=== PATIENT | male | born 1945 | race Caucasian/White ===

== ENCOUNTER → 2023-12-05 10:28 | Outpatient (REF) | payer MEDICARE, BC, SELFPAY ==
[2023-12-05 11:57] LABS: PSA, Total - Diagnostic 2.11 ng/ml (0.0-4.0)
== END ==
LOC: REG 10:28
PROVIDERS: ATTENDING PHYSICIAN Specialist; FAMILY PHYSICIAN Family Medicine
DX: C61 Malignant neoplasm of prostate (principal)
CPT/HCPCS: 36415; 84153

== ENCOUNTER → 2023-12-29 17:09 | Outpatient (REF) | payer MEDICARE, BC, SELFPAY ==
[2023-12-29 18:20] LABS: Urine Albumin Trace (Neg - Trace); Urine Bilirubin Negative (Negative); Urine Character Clear (Clear); Urine Color Yellow; Urine Glucose Negative (Negative); Urine Ketone Negative (Negative); Urine Leukocyte Negative (Negative); Urine Nitrite Negative (Negative); Urine Occult Blood 3+ (Negative); Urine Urobilinogen Negative (Neg - 1+)
[2023-12-29 18:30] LABS: Urine Mucus Few; Urine Uric Acid Crystals Present
[2023-12-29 18:31] LABS: Urine Bacteria Few (Negative); Urine White Cell 0-2 /HPF (0-5)
== END ==
LOC: CLAB 17:09
PROVIDERS: ATTENDING PHYSICIAN Specialist
DX: R31.9 Hematuria, unspecified (principal)
CPT/HCPCS: 81003; 81015

== ENCOUNTER → 2024-01-19 08:17 | Outpatient (REF) | payer MEDICARE, BC, SELFPAY | LOC: RAD 08:17 | PROVIDERS: ATTENDING PHYSICIAN Specialist; FAMILY PHYSICIAN Family Medicine | DX: R31.0 Gross hematuria (principal) | CPT/HCPCS: 76770 ==

== ENCOUNTER → 2024-01-25 11:00 | Outpatient (REF) | payer MEDICARE, BC, SELFPAY | LOC: RAD 11:00 | PROVIDERS: ATTENDING PHYSICIAN Specialist; FAMILY PHYSICIAN Family Medicine | DX: N20.0 Calculus of kidney (principal) | CPT/HCPCS: 74018 ==

== ENCOUNTER → 2024-03-25 09:27 | Outpatient (REF) | payer MEDICARE, BC, SELFPAY ==
[2024-03-25 10:37] LABS: % Basophils 0.4 % (0-2); % Eosinophils 3.3 % (0-6); % Immature Granulocytes 0.6 % (0-0.5); % Lymphocytes 20.3 % (20.5-51.1); % Monocytes 4.7 % (1.7-9.3); % Neutrophils 70.7 % (42.2-75.2); Absolute Eosinophils 0.3 10^3/uL (0-0.7); Absolute Immature Granulocytes 0.1 10^3/uL (0-0.05); Absolute Lymphocytes 1.6 10^3/uL (1.2-3.4); Absolute Monocytes 0.4 10^3/uL (0.1-0.6); Absolute Neutrophils 5.7 10^3/uL (1.4-6.5); Hematocrit 47.3 % (39.0-52.0); Hemoglobin 15.3 g/dL (13.0-18.0); Mean Corp Hgb Conc. 32.3 g/dL (33.0-37.0); Mean Corpuscular Hgb 32.6 pg (27.0-31.0); Mean Corpuscular Volume 100.9 fL (80.0-94.0); Mean Platelet Volume 10.2 fL (7.4-10.4); Nucleated Red Blood Cells % 0 % (-); Platelet Count 165 10^3/uL (130-400); Red Blood Cell Count 4.69 10^6/uL (4.70-6.10); Red Cell Dist. Width 13.8 % (11.5-14.5); White Blood Cell Count 8.1 10^3/uL (4.8-10.8)
[2024-03-25 11:14] LABS: Glycohemoglobin (HgbA1c) 5.3 % (4.0-5.6)
[2024-03-25 11:28] LABS: ALT (SGPT) 21 U/L (0-50); AST (SGOT) 26 U/L (17-59); Albumin 4.7 g/dl (3.5-5.0); Alkaline Phosphatase 85 U/L (38-126); Blood Urea Nitrogen 14 mg/dl (9-20); Calcium 9.1 mg/dl (8.4-10.2); Carbon Dioxide 31 mmol/L (22-30); Chloride 100 mmol/L (98-107); Glucose 104 mg/dl (70-99); HDL Cholesterol 80 mg/dl; LDL Cholesterol, Calculated 185 mg/dl; Potassium 4.4 mmol/L (3.5-5.1); Sodium 140 mmol/L (135-145); Total Bilirubin 0.8 mg/dl (0.2-1.3); Total Cholesterol 296 mg/dl (50-199); Total Protein 7.5 g/dl (6.3-8.2); Triglyceride 156 mg/dl (10-149); Very Low Density Lipoprotein 31 mg/dl (0-30); eGFR > 60.00
[2024-03-25 11:44] LABS: Vitamin D, 25-OH*** 92.2 ng/mL (30-80)
[2024-03-25 11:58] LABS: TSH 1.18 uIU/ml (0.47-4.68)
[2024-03-25 14:28] LABS: Lyme Antibody Screen, EIA Negative (Negative)
[2024-03-27 01:14] LABS: ANA, IgG Reflex to HEp-2 None Detected (None Detected)
[2024-03-28 09:23] LABS: HLA-B27 Negative (Negative)
[2024-03-28 13:01] LABS: Albumin 4.58 g/dL (3.75-5.01); Alpha 1 Globulin 0.31 g/dL (0.19-0.46); Alpha 2 Globulin 0.77 g/dL (0.48-1.05); SPEP IFE Reflex Not Done; Total Protein-Electrophoresis 7.3 g/dL (6.3-8.2)
== END ==
LOC: RAD 09:27
PROVIDERS: ATTENDING PHYSICIAN Internal Medicine Rheumatology; FAMILY PHYSICIAN Family Medicine
DX: G89.29 Other chronic pain (principal); M54.50 Low back pain, unspecified; R53.83 Other fatigue; M35.3 Polymyalgia rheumatica; E78.5 Hyperlipidemia, unspecified; R73.9 Hyperglycemia, unspecified; E55.0 Rickets, active
CPT/HCPCS: 36415; 72110; 80053; 80061; 82306; 83036; 84155; 84165; 84443; 85025; 86038; 86140; 86618; 86812

== ENCOUNTER → 2024-04-29 13:20 | Outpatient (REF) | payer MEDICARE, BC, SELFPAY | LOC: RCS 13:20 | PROVIDERS: ATTENDING PHYSICIAN Family Medicine; FAMILY PHYSICIAN Internal Medicine Rheumatology | DX: I35.0 Nonrheumatic aortic (valve) stenosis (principal) | CPT/HCPCS: 93306 ==

== ENCOUNTER → 2024-05-24 07:14 | Outpatient (REF) | payer MEDICARE, BC, SELFPAY | LOC: MRI 3T 07:14 | PROVIDERS: ATTENDING PHYSICIAN Internal Medicine Rheumatology; FAMILY PHYSICIAN Family Medicine | DX: G89.29 Other chronic pain (principal); M54.31 Sciatica, right side; M54.50 Low back pain, unspecified; R53.83 Other fatigue | CPT/HCPCS: 72148 ==

== ENCOUNTER → 2024-05-28 11:09 | Outpatient (REF) | payer MEDICARE, BC, SELFPAY ==
[2024-05-28 13:01] LABS: PSA, Total - Diagnostic 3.09 ng/ml (0.0-4.0)
== END ==
LOC: REG 11:09
PROVIDERS: ATTENDING PHYSICIAN Specialist; FAMILY PHYSICIAN Family Medicine
DX: C61 Malignant neoplasm of prostate (principal)
CPT/HCPCS: 36415; 84153

== ENCOUNTER → 2024-05-29 11:12 | Outpatient (REF) | payer MEDICARE, BC, SELFPAY | LOC: HWRAD 11:12 | PROVIDERS: ATTENDING PHYSICIAN Specialist; FAMILY PHYSICIAN Family Medicine | DX: R31.0 Gross hematuria (principal) | CPT/HCPCS: 74176 ==

== ENCOUNTER 2024-06-07 06:25 | Day surgery (SDC) | payer MEDICARE, BC, SELFPAY ==
[2024-06-07] VITALS (8 sets, daily range): BP systolic 133–153; BP diastolic 70–96
[2024-06-07] MEDS: NORMOSOL-R/PLASMALYTE-A 1000 IV (07:49)
[2024-06-07] MEDS: Pyridium 200 MG PO (11:27)
[2024-06-07] MEDS: ZOFRAN 4 MG IV (11:29)
--- NOTE | 2024-06-07 11:31 | SUR.PHASEI ---
Pt being prepared to go to [facility] and started c/o nausea. Pt kept in pacu to tx nausea. See MAR
[2024-06-07] MEDS: COMPAZINE 5 MG IV (11:39)
== END 2024-06-07 12:50 | disposition home or self-care (01) ==
LOC: SDS 06:25
PROVIDERS: ATTENDING PHYSICIAN Specialist
DX: N20.0 Calculus of kidney (principal)
CPT/HCPCS: 52356; 74420; 76000; 82365; 93005; C1758; C1894; C2617

== ENCOUNTER 2024-06-21 13:53 | Inpatient (IN) | payer MEDICARE, BC, SELFPAY ==
[2024-06-21] VITALS (12 sets, daily range): BP systolic 103–134; BP diastolic 60–75; BMI 24.7
[2024-06-21] MEDS: NORMOSOL-R/PLASMALYTE-A 1000 IV (09:20)
[2024-06-21] MEDS: EMEND 40 MG PO (10:59)
[2024-06-21] MEDS: DEXTROSE 50% SYRINGE 12.5 GRAMS IV (11:00)
--- NOTE | 2024-06-21 12:19 | W.PN.ADMIT ---
Progress Note - Admit
Progress Note - Admit
pt s/p right ureteroscopy/stone extraction and stent
admitting for severe post op nausea
check labs/cx
gi consult
[2024-06-21 13:02] LABS: Hematocrit 35.9 % (39.0-52.0); Hemoglobin 11.8 g/dL (13.0-18.0); Mean Corp Hgb Conc. 32.9 g/dL (33.0-37.0); Mean Corpuscular Hgb 33.4 pg (27.0-31.0); Mean Corpuscular Volume 101.7 fL (80.0-94.0); Mean Platelet Volume 9.8 fL (7.4-10.4); Platelet Count 158 10^3/uL (130-400); Red Blood Cell Count 3.53 10^6/uL (4.70-6.10); Red Cell Dist. Width 13.2 % (11.5-14.5); White Blood Cell Count 5.8 10^3/uL (4.8-10.8)
[2024-06-21 13:15] LABS: ALT (SGPT) 26 U/L (0-50); AST (SGOT) 28 U/L (17-59); Albumin 3.6 g/dl (3.5-5.0); Alkaline Phosphatase 68 U/L (38-126); Amylase 45 U/L (30-110); Blood Urea Nitrogen 21 mg/dl (9-20); Carbon Dioxide 28 mmol/L (22-30); Chloride 103 mmol/L (98-107); Estimated Creatinine Clearance 69 ml/min; Glucose 91 mg/dl (70-99); Lipase 38 U/L (23-300); Potassium 4.1 mmol/L (3.5-5.1); Sodium 138 mmol/L (135-145); Total Bilirubin 0.7 mg/dl (0.2-1.3); Total Protein 5.9 g/dl (6.3-8.2); eGFR > 60.00
--- NOTE | 2024-06-21 14:10 | PTCARENOTE ---
Pt received from the PACU via bed. Transport was w/o incident. Pt is AAOx3, HRR, lungs are clear. Pt with wolf catheter intact draining punch colored urine. Pt denies pain or nausea at this time. VSS, Pt is afebrile. Pt instructed on plan of care.
Pt verbalized understanding of instructions. Call grady is within reach.
[2024-06-21] MEDS: NSS 1000 IV ×2 (14:12→23:32)
[2024-06-21] MEDS: ANCEF 5 IV ×2 (14:20→21:56)
[2024-06-21] MEDS: TORADOL 15 MG IV ×2 (14:25→21:56)
--- NOTE | 2024-06-21 15:26 | CON.GI ---
Consultation
-
Date/Time Consultation Requested: 06/21/24 at 2pm
Date/Time Consultation Performed: 06/21/24 at 3pm
Requesting Provider: jessie breaux
Performing Provider: srinath Pandey
Reason for Consultation: postop nausea
Medical History
Chief Complaint / HPI
Chief Complaint: gerd, nausea
History of Present Illness:
This patient is a 78-year-old man who has a history of kidney stones and has been having procedures most recently with a right ureteroscopy with stone extraction and stent. He has had at least several surgeries in which he felt fine before the
surgery and then developed belching and nausea afterwards. He did once have abdominal distention and constipation. He states this takes a while to resolve but eventually resolves. He last had a procedure 1 week ago and had nausea and decreased
appetite and did not fully improve when he had his surgery today. He is being admitted for presumed postop issues. Right now he does not have any nausea. He states that giving him antiemetics had not worked. He does have a GI doctor and states
that he has GERD and he has had scopes in the past. He does not remember the name of the doctor but states that he is in [place]. He also had some belching after one of the procedures. Dr. Breaux spoke to me directly regarding this patient
Past Medical History
Past Medical History: Other (Prostate cancer, hypertension, recurrent nephrolithiasis, sleep apnea, GERD, chronic fatigue)
Past Surgical History: Other (Cholecystectomy, radical prostatectomy, ureteroscopy, cystoscopy)
Social History
Tobacco: Non-Smoker
Family History
Family History: Reviewed & Not Pertinent (no colon cancer)
Allergies / Home Medications
Allergy/AdvReac Type Severity Reaction Status Date / Time
No Known Allergies Allergy Verified 06/21/24 09:16
�Medication �Instructions �Recorded
amlodipine 5 mg tablet 5 mg PO DAILY 06/03/22
levothyroxine 50 mcg tablet 50 mcg PO DAILY 06/03/22
losartan 100 mg tablet 100 mg PO DAILY 06/03/22
modafinil 200 mg tablet 600 mg PO DAILY 06/03/22
pantoprazole 40 mg tablet,delayed 40 mg PO DAILY 06/03/22
release (Protonix)
vitamin B complex 1 cap PO DAILY 06/03/22
ibuprofen 200 mg tablet 600 mg PO PRN PRN pain 11/03/22
prednisone 5 mg tablet 5 mg PO DAILY 05/31/24
ascorbic acid (vitamin C) 1,000 mg 1,000 mg PO DAILY 06/04/24
tablet (Vitamin C)
magnesium L-threonate 3 tab PO DAILY 06/04/24
quercetin 500 mg capsule 500 mg PO DAILY 06/04/24
vitamin D3 125 mcg (5,000 1 cap PO DAILY 06/04/24
unit)-vitamin K2 180 mcg capsule
acetaminophen 325 mg tablet 650 mg PO Q6H PRN Pain 06/07/24
(Tylenol)
bupropion HCl 150 mg 24 hr tablet, 150 mg PO DAILY 06/07/24
extended release
sertraline 50 mg tablet 50 mg PO DAILY 06/07/24
Review of Systems
-
All other systems: A 12 pt ROS was Negative except as stated above in HPI
Vital Signs
Temp Pulse Resp BP Pulse Ox
98.1 F 68 17 124/68 98
06/21/24 14:11 06/21/24 14:11 06/21/24 14:11 06/21/24 14:11 06/21/24 14:11
Physical Exam
Exam
General: No Apparent Distress
Cardiac: S1/S2
GI: Soft and Non Distended
Skin: Warm
Neuro: Awake and Oriented
Psych: Calm
Results
WBC 5.8 10^3/uL (4.8-10.8) 06/21/24 12:48
Hgb 11.8 g/dL (13.0-18.0) L 06/21/24 12:48
Hct 35.9 % (39.0-52.0) L 06/21/24 12:48
MCV 101.7 fL (80.0-94.0) H 06/21/24 12:48
Plt Count 158 10^3/uL (130-400) 06/21/24 12:48
Sodium 138 mmol/L (135-145) 06/21/24 12:48
Potassium 4.1 mmol/L (3.5-5.1) 06/21/24 12:48
Chloride 103 mmol/L (98-107) 06/21/24 12:48
Carbon Dioxide 28 mmol/L (22-30) 06/21/24 12:48
BUN 21 mg/dl (9-20) H 06/21/24 12:48
Creatinine 0.9 mg/dL (0.7-1.3) 06/21/24 12:48
Calcium 8.0 mg/dl (8.4-10.2) L 06/21/24 12:48
Total Bilirubin 0.7 mg/dl (0.2-1.3) 06/21/24 12:48
AST 28 U/L (17-59) 06/21/24 12:48
ALT 26 U/L (0-50) 06/21/24 12:48
Alkaline Phosphatase 68 U/L (38-126) 06/21/24 12:48
Amylase 45 U/L (30-110) 06/21/24 12:48
Lipase 38 U/L (23-300) 06/21/24 12:48
Assessment / Plan
-
This patient is a 78-year-old man who has a history of postop nausea, GERD and at times constipation. I do think he has a prolonged response to the anesthesia which may give him a mild ileus. He also may be constipated at times which may worsen
his GERD. Currently he is feeling well. For now would do the following:
1. PPI IV twice daily as it does sound like he gets postop reflux which is causing nausea as he does not respond to antiemetics.
2. MiraLAX daily
3. If he does have surgeries in the future I would recommend a PPI twice a day orally and MiraLAX nightly starting a week before the procedure.
4. If he worsens I would get an abdominal x-ray
-
-
Thank you for consultation and allowing me to participate in the patient's care. Please call the detention officer GI physician during the after hours with any questions or concerns.
[2024-06-21] MEDS: PROTONIX IV 40 MG IV (19:16)
[2024-06-21] MEDS: NSS (PRESERVATIVE FREE) 10 ML IV (19:17)
[2024-06-21] MEDS: MIRALAX 17 GRAMS PO (19:17)
[2024-06-21] MEDS: TYLENOL 650 MG PO (19:22)
[2024-06-21] MEDS: MILK OF MAGNESIA 30 ML PO (23:24)
[2024-06-21] MEDS: TUMS CHEWABLE TABLET 200 MG PO (23:24)
[2024-06-22] MEDS: ZOFRAN 4 MG IV (03:14)
[2024-06-22 03:43] VITALS: BP 115/62
[2024-06-22] MEDS: TORADOL 15 MG IV ×3 (05:46→22:25)
[2024-06-22] MEDS: SYNTHROID 50 MCG PO (05:46)
[2024-06-22] MEDS: ANCEF 5 IV ×3 (05:46→22:25)
[2024-06-22 06:35] LABS: Hematocrit 32.8 % (39.0-52.0); Hemoglobin 10.8 g/dL (13.0-18.0); Mean Corp Hgb Conc. 32.9 g/dL (33.0-37.0); Mean Corpuscular Volume 100.3 fL (80.0-94.0); Platelet Count 147 10^3/uL (130-400); Red Blood Cell Count 3.27 10^6/uL (4.70-6.10); White Blood Cell Count 5.7 10^3/uL (4.8-10.8)
[2024-06-22 06:59] LABS: ALT (SGPT) 22 U/L (0-50); AST (SGOT) 27 U/L (17-59); Albumin 3.2 g/dl (3.5-5.0); Alkaline Phosphatase 62 U/L (38-126); Blood Urea Nitrogen 28 mg/dl (9-20); Calcium 7.8 mg/dl (8.4-10.2); Carbon Dioxide 26 mmol/L (22-30); Chloride 102 mmol/L (98-107); Estimated Creatinine Clearance 69 ml/min; Glucose 83 mg/dl (70-99); Potassium 4.1 mmol/L (3.5-5.1); Sodium 136 mmol/L (135-145); Total Bilirubin 0.8 mg/dl (0.2-1.3); Total Protein 5.4 g/dl (6.3-8.2); eGFR > 60.00
[2024-06-22] MEDS: PROVIGIL 600 MG PO (08:00)
[2024-06-22 08:12] VITALS: BP 114/89
[2024-06-22] MEDS: WELLBUTRIN XL (24 hour extended release) 150 MG PO (08:24)
[2024-06-22] MEDS: COZAAR 100 MG PO (08:24)
[2024-06-22] MEDS: NORVASC 5 MG PO (08:24)
[2024-06-22] MEDS: VITAMIN D3 (cholecalciferol) 125 MCG PO (08:24)
[2024-06-22] MEDS: B COMPLEX w/VITAMIN C 1 CAPLET PO (08:24)
[2024-06-22] MEDS: PROTONIX IV 40 MG IV ×2 (08:25→20:00)
[2024-06-22] MEDS: ZOLOFT 50 MG PO (08:25)
[2024-06-22] MEDS: VITAMIN C 1000 MG PO (08:25)
[2024-06-22] MEDS: NSS (PRESERVATIVE FREE) 10 ML IV ×2 (08:26→20:00)
[2024-06-22] MEDS: MIRALAX 17 GRAMS PO (08:28)
[2024-06-22] MEDS: DELTASONE 5 MG PO (08:28)
[2024-06-22] MEDS: NSS 1000 IV (08:29)
--- NOTE | 2024-06-22 09:42 | W.PN.GI.CBS2 ---
Today's Communication / Plan
-
xray
miralax
PPI
Assessment / Plan
-
This patient is a 78-year-old man who has a history of postop nausea, GERD and at times constipation. I do think he has a prolonged response to the anesthesia which may give him a mild ileus. He also may be constipated at times which may worsen
his GERD. Currently he is feeling well. For now would do the following:
1. PPI IV twice daily as it does sound like he gets postop reflux which is causing nausea as he does not respond to antiemetics.
2. increase miraLAX to twice a day
3. If he does have surgeries in the future I would recommend a PPI twice a day orally and MiraLAX nightly starting a week before the procedure.
4. check abdominal x-ray
Subjective
Subjective
Date of Service: June 22, 2024
Pt feels like he may get nauseated. ate tomato based food last night. no bm
Objective
Data Reviewed
Laboratory Data:
Laboratory Results
06/22/24 05:43
06/22/24 05:43
Laboratory Results
Total Bilirubin 0.8 mg/dl (0.2-1.3) 06/22/24 05:43
AST 27 U/L (17-59) 06/22/24 05:43
ALT 22 U/L (0-50) 06/22/24 05:43
Alkaline Phosphatase 62 U/L (38-126) 06/22/24 05:43
Amylase 45 U/L (30-110) 06/21/24 12:48
Lipase 38 U/L (23-300) 06/21/24 12:48
Vital Signs and I&O:
Vital Signs
Temp Pulse Resp BP Pulse Ox
98.1 F 61 14 114/89 93
06/22/24 08:12 06/22/24 08:12 06/22/24 08:12 06/22/24 08:12 06/22/24 08:12
I&O
06/21/24 06/22/24 06/23/24
06:59 06:59 07:59
Intake Total 2440 / 2440
Output Total 500 / 500
Balance 1939 / 1939
Physical Exam
Physical Exam
GI: Soft, Non Distended and Non Tender
--- NOTE | 2024-06-22 10:54 | W.PN.URO.CBU ---
Today's Communication / Plan
-
wolf out
continue bowel regimen
stop ivf
recheck KUB in am
Assessment / Plan
-
s/p ureteroscopy and stent for stones
post op nausea
appreciate gi help
pt tolerating diet- has moved bowels
KUB c/w mild colonic distention- dilated loop of bowel in pelvis most likely sigmoid and pt moved bowels right after this
today will continue meds per GI
wolf out
saline lock iv
recehck KUB in am- if pt stable and xray looks good- home
Diagnosis
-
Date of Service: June 22, 2024
-
Patient Diagnosis:
stone
post op nasuea
Post Op Day:
06/21- right ureteroscopy/stone extraction/stent placement
Subjective
-
pt overall feels good
urine clear
no fevers
labs stable
had kub- some distention of transverse colon and a loop of bowel- ? sb or sigmoid in pelvis- right after this- pt had large bowel movement
Objective
-
Vital Signs
Temp Pulse Resp BP Pulse Ox
98.1 F 61 14 114/89 93
06/22/24 08:12 06/22/24 08:12 06/22/24 08:12 06/22/24 08:12 06/22/24 08:12
Intake and Output
06/21/24 06/22/24 06/23/24
06:59 06:59 07:59
Intake Total 2440 / 2440
Output Total 500 / 500
Balance 194 / 194
Intake:
Oral fluids 1040 / 1040
IV fluids (Total) 1400 / 1400
Normosol 200 / 200
Output:
Urine, Wolf 500 / 500
Laboratory Results
06/22/24 05:43
06/22/24 05:43
Review of Systems
-
Constitutional: No Symptoms
Respiratory: No Symptoms
Cardiac: No Symptoms
Abdomen/GI: No Symptoms
Physical Exam
-
General -no acute distress
Abdomen - soft, non-tender
Genitalia - normal- wolf in place
[2024-06-22 11:35] VITALS: BP 105/60
[2024-06-22 15:38] VITALS: BP 99/55
[2024-06-22 23:15] VITALS: BP 99/51
[2024-06-23] MEDS: ANCEF 5 IV (06:03)
[2024-06-23] MEDS: SYNTHROID 50 MCG PO (06:03)
[2024-06-23] MEDS: TORADOL IV (06:18)
--- NOTE | 2024-06-23 06:19 | PTCARENOTE ---
Pt urine less bloody throughout shift, this morning urine tea colored, no clots
--- NOTE | 2024-06-23 07:17 | W.PN.GI.CBS2 ---
Today's Communication / Plan
-
decrease miralax
Assessment / Plan
-
This patient is a 78-year-old man who has a history of postop nausea, GERD and at times constipation. I do think he has a prolonged response to the anesthesia which may give him a mild ileus. He also may be constipated at times which may worsen
his GERD. Currently he is feeling well. For now would do the following:
1. xray w/o stool so decrease miralax to daily.
2. continue PPI bid
3. If he does have surgeries in the future I would recommend a PPI twice a day orally and MiraLAX nightly starting a week before the procedure.
he can f/u with his outpatient GI
will sign off
Subjective
Subjective
Date of Service: June 23, 2024
Pt feels much better. had bm with miralax. no abdominal distention. minimal nausea
Objective
Data Reviewed
Laboratory Data:
Laboratory Results
06/22/24 05:43
06/22/24 05:43
Laboratory Results
Total Bilirubin 0.8 mg/dl (0.2-1.3) 06/22/24 05:43
AST 27 U/L (17-59) 06/22/24 05:43
ALT 22 U/L (0-50) 06/22/24 05:43
Alkaline Phosphatase 62 U/L (38-126) 06/22/24 05:43
Amylase 45 U/L (30-110) 06/21/24 12:48
Lipase 38 U/L (23-300) 06/21/24 12:48
Vital Signs and I&O:
Vital Signs
Temp Pulse Resp BP Pulse Ox
98.2 F 65 16 99/51 94
06/22/24 23:15 06/22/24 23:15 06/22/24 23:15 06/22/24 23:15 06/22/24 23:15
I&O
06/22/24 06/23/24 06/24/24
05:59 06:59 06:59
Intake Total
Output Total
Balance
Physical Exam
Physical Exam
GI: Soft, Non Distended and Non Tender
Neuro: Non Focal
[2024-06-23 08:03] VITALS: BP 137/74
[2024-06-23] MEDS: WELLBUTRIN XL (24 hour extended release) 150 MG PO (08:15)
[2024-06-23] MEDS: VITAMIN D3 (cholecalciferol) 125 MCG PO (08:15)
[2024-06-23] MEDS: NORVASC 5 MG PO (08:15)
[2024-06-23] MEDS: PROVIGIL 600 MG PO (08:16)
[2024-06-23] MEDS: B COMPLEX w/VITAMIN C 1 CAPLET PO (08:16)
[2024-06-23] MEDS: ZOLOFT 50 MG PO (08:19)
[2024-06-23] MEDS: MIRALAX 17 GRAMS PO (08:19)
[2024-06-23] MEDS: VITAMIN C 1000 MG PO (08:19)
[2024-06-23] MEDS: COZAAR 100 MG PO (08:19)
[2024-06-23] MEDS: NSS (PRESERVATIVE FREE) 10 ML IV (08:20)
[2024-06-23] MEDS: PROTONIX IV 40 MG IV (08:22)
--- NOTE | 2024-06-23 08:23 | W.PN.URO.CBU ---
Today's Communication / Plan
-
Interval KUB this AM
Discharge home if KUB stable/improved
F/U w/ Dr. Prakash for stent removal
Assessment / Plan
-
s/p right ULS (stent in place)
post op nausea
GI input appreciated
Tolerating diet - passing flatus and having BMs
KUB c/w mild colonic distention- dilated loop of bowel in pelvis most likely sigmoid and pt moved bowels right after this
Diagnosis
-
Date of Service: June 23, 2024
-
Patient Diagnosis:
Larve volume renal stone
post op nausea
Post Op Day:
3- right ureteroscopy/stone extraction/stent placement
Subjective
-
Tolerating diet.
Denies N/V.
Minimal belching - improved.
+flatus.
+BMs.
Objective
-
Vital Signs
Temp Pulse Resp BP Pulse Ox
97.3 F 68 16 137/74 95
06/23/24 08:03 06/23/24 08:03 06/23/24 08:03 06/23/24 08:03 06/23/24 08:03
Intake and Output
06/22/24 06/23/24 06/24/24
05:59 06:59 06:59
Intake Total
Output Total
Balance
Intake:
Oral fluids
IV fluids (Total)
Normosol
Output:
Urine, Hanesn
Urine, Voided
Laboratory Results
06/22/24 05:43
06/22/24 05:43
Physical Exam
-
General - well developed, well nourished, no acute distress
Abdomen - soft, non-tender, non-distended
- normal
Neuro - AOx3, no motor deficits
Extremities - no clubbing, no cyanosis, no edema
Care Review
Data Reviewed
Discussed with: Nursing
Total Time Spent with Patient (in minutes): 50
[2024-06-23] MEDS: DELTASONE 5 MG PO (08:36)
--- NOTE | 2024-06-23 09:27 | W.DS.TRANS ---
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
-
Discharge Instructions:
Discharge Diagnosis/Procedures right ureteroscopy/stone removal and stent
replacement
Diet No restrictions
Activity No restrictions
Driving Restrictions As prior to admission
Bathing Restrictions OK to Shower
Wound Care expect blood in urine, urinary urgency and
frequency and some discomfort with urination
Instructions:
Stand-Alone Forms:
Changes to Home Medications: No
Discharge Medications:
DC Medications w/original date entered in [employer]
amlodipine 5 mg tablet 5 mg PO DAILY 06/03/22
levothyroxine 50 mcg tablet 50 mcg PO DAILY 06/03/22
losartan 100 mg tablet 100 mg PO DAILY 06/03/22
modafinil 200 mg tablet 600 mg PO DAILY 06/03/22
pantoprazole 40 mg tablet,delayed release (Protonix) 40 mg PO DAILY 06/03/22
vitamin B complex 1 cap PO DAILY 06/03/22
ibuprofen 200 mg tablet 600 mg PO PRN PRN pain 11/03/22
prednisone 5 mg tablet 5 mg PO DAILY 05/31/24
ascorbic acid (vitamin C) 1,000 mg tablet (Vitamin C) 1,000 mg PO DAILY 06/04/24
magnesium L-threonate 3 tab PO DAILY 06/04/24
quercetin 500 mg capsule 500 mg PO DAILY 06/04/24
vitamin D3 125 mcg (5,000 unit)-vitamin K2 180 mcg capsule 1 cap PO DAILY 06/04/24
acetaminophen 325 mg tablet (Tylenol) 650 mg PO Q6H PRN Pain 06/07/24
bupropion HCl 150 mg 24 hr tablet, extended release 150 mg PO DAILY 06/07/24
sertraline 50 mg tablet 50 mg PO DAILY 06/07/24
Home Medication Changes
Pending Results: No
--- NOTE | 2024-06-23 11:27 | CM ---
Patient seen at bedside.
IMM explained & signed. In chart
PLAN: Home, no needs
to transport
[2024-06-23 11:55] VITALS: BP 128/74
== END 2024-06-23 12:10 | disposition home or self-care (01) | DRG 661 ==
LOC: 2 SOUTH 13:53
PROVIDERS: ADMITTING PHYSICIAN Specialist; OTHER PHYSICIAN Internal Medicine
PROC: 0T768DZ Dilation of Right Ureter with Intraluminal Device, Via Natural or Artificial Opening Endoscopic (ICD-10-PCS; 2024-06-21)
PROC: 0TC68ZZ Extirpation of Matter from Right Ureter, Via Natural or Artificial Opening Endoscopic (ICD-10-PCS; 2024-06-21)
PROC: 0TP98DZ Removal of Intraluminal Device from Ureter, Via Natural or Artificial Opening Endoscopic (ICD-10-PCS; 2024-06-21)
DX: N20.0 Calculus of kidney (principal); N20.1 Calculus of ureter; K21.9 Gastro-esophageal reflux disease without esophagitis; Z85.46 Personal history of malignant neoplasm of prostate; Z87.442 Personal history of urinary calculi
CPT/HCPCS: 74018; 74019; 74420; 76000; 80053; 82150; 82365; 83690; 85027; 87086; C1758; C1894; C2617

== ENCOUNTER → 2024-07-23 14:03 | Outpatient (REF) | payer MEDICARE, BC, SELFPAY ==
[2024-07-23 15:25] LABS: ALT (SGPT) 22 U/L (0-50); AST (SGOT) 22 U/L (17-59); Albumin 4.2 g/dl (3.5-5.0); Alkaline Phosphatase 89 U/L (38-126); Blood Urea Nitrogen 17 mg/dl (9-20); Calcium 9.1 mg/dl (8.4-10.2); Carbon Dioxide 29 mmol/L (22-30); Chloride 102 mmol/L (98-107); Glucose 95 mg/dl (70-99); Potassium 4.4 mmol/L (3.5-5.1); Sodium 139 mmol/L (135-145); Total Bilirubin 0.7 mg/dl (0.2-1.3); Uric Acid 3.2 mg/dl (3.5-8.5); eGFR > 60.00
[2024-07-23 15:30] LABS: Intact PTH 31.7 pg/ml (13.6-85.8)
== END ==
LOC: REG 14:03
PROVIDERS: ATTENDING PHYSICIAN Specialist; FAMILY PHYSICIAN Family Medicine
DX: N20.0 Calculus of kidney (principal)
CPT/HCPCS: 36415; 80053; 83970; 84550

== ENCOUNTER 2024-07-27 15:50 | Inpatient (IN) | payer MEDICARE, BC, SELFPAY ==
[2024-07-27 11:58] VITALS: BP 136/86
--- NOTE | 2024-07-27 12:24 | ED.GENMED ---
History of Present Illness
General
Chief Complaint: Abdominal Symptoms
Source: patient, records and spouse
Exam Limitations: none
Time Seen by Provider: 07/27/24 12:03
History of Present Illness
History of Present Illness:
78yoM with a history of hypertension, GERD, fibromyalgia, chronic fatigue, kidney stones, prostate cancer, and sleep apnea presenting with his for evaluation of vomiting. Patient underwent cystoscopy with ureteral stent placement on 06/07/2024
as well as 06/21/2024 due to kidney stones. Patient developed nausea and vomiting shortly afterwards which has been ongoing. Patient was admitted for several days after his second procedure due to his ongoing nausea. He was seen by gastroenterology
who believed he was having a prolonged response to the anesthesia. He was given IV PPI as well as MiraLAX. Patient felt well while in the hospital but symptoms recurred shortly after returning home. Patient continues to have nausea and retching
daily since then. He has lost about 10 pounds over the past month. He can tolerate oral intake at times. He states he has been increasingly weak to the point where he fell this morning while in the shower. He struck the back of his head but did
not lose any consciousness. He has some mild abdominal discomfort but states this is not unusual for him. Last bowel movement was 2 days ago. He has had similar issues in the past after surgeries but this episode has been more severe.
Phy Exam
General Physical Exam
General Presentation: well appearing and no apparent distress
General age: appears stated age
General Skin: warm and dry
General Habitus: normal
General Mental: alert
ENT Exam
ENT Exam: normocephalic and other (Small hematoma to occipital scalp. No cervical spine tenderness.)
Eye Exam
Eye Exam: PERRL
Cardiovascular Exam
Cardiovascular Exam: regular rate/rhythm
Pulmonary Exam
Pulmonary Exam: lungs clear, no respiratory distress, no rales, no crackles, no rhonchi and no wheezing
Gastrointestinal Exam
Gastrointestinal Exam: non tender, soft and non distended
Neurological Exam
Neurological Exam: alert
Caitlin Coma Scale
Eye Opening: Spontaneous
Verbal Response: Oriented
Motor Response: Obeys Commands
GCS Total Score: 15
Skin Exam
Skin Exam: normal color and warm/dry
Psychiatric Exam
Psychiatric Exam: normal mood/affect
Course
Orders/Labs/Results
Orders:
Orders
07/27/24 12:24
Electrocardiogram (*1) Urgent
Reason for Study: Fatigue / Weakness
CT Head W/o Iv Contrast Urgent
Comment:
Reason For Exam: fall, head injury
EKG- Treatment ONCE
0.9% Sodium Chloride 500 ml [Nss] 500 ml IV BOLUS
Ondansetron Injectable [Zofran] 4 mg IV NOW STA
07/27/24 12:33
Complete Blood Count/With Diff Urgent
07/27/24 13:15
Basic Metabolic Panel Urgent
Lipase Urgent
Troponin I Urgent
07/27/24 14:28
LFT [Uqzoj-[id number]] Urgent
Magnesium Urgent
Potassium Urgent
07/27/24 14:36
Urinalysis Reflex To Culture Urgent
Date Specimen was Collected: 07/27/24
Time Specimen was Collected: 14:33
07/27/24 15:32
Admit/Transfer Patient As Directed
Co-Sign Provider:
Level of Care: Inpatient admission
Assign to:: Medical/Surgical
Physician / Group: [email or web address]
Diagnosis: Persistent N/V and constipation with significant wt. loss
Reason for Hospitalization: Persistent N/V and constipation with significant wt. loss
Expected length of stay greater than two midnights?: Yes
ELOS- Estimated Length of Stay in days: 3
I certify the patient meets the requirements for IP care: Yes
07/27/24 15:35
Code Status As Directed
Resuscitation Status: Full Code
07/27/24 16:47
0.9% Sodium Chloride 1000 ml [Nss] 1,000 ml IV 80 mls/hr
Acetaminophen [Tylenol] 650 mg PO Q4HPRN PRN
Bisacodyl [Dulcolax] 10 mg RECTAL [id number] PRN
Docusate W/Senna [Senokot-S] 1 tablet PO BIDPRN PRN
Mag Hydrox/Al Hydrox/Simeth [Maalox] 30 ml PO Q6HPRN PRN
Ondansetron Injectable [Zofran] 4 mg IV Q6HPRN PRN
Polyethylene Glycol Powder [Miralax] 17 grams PO DAILYPRN PRN
07/27/24 16:47
Activity As Directed
Activity Level: With Assistance
Intake/ Output As Directed
Frequency: Per unit guidelines
Vital Signs As Directed
Frequency: Per unit guidelines
Weight As Directed
Frequency: Daily
DX Deep Vein Thrombosis Video Routine
07/27/24 20:00
Heparin 5,000 units SC Q12
07/28/24 Breakfast
Full Liquids
At Your Request: Full Participation
Does patient need a safe tray?: No
Comment: to advance as tolerated
Basic Metabolic Panel IN AM
Complete Blood Count/No Diff IN AM
TSH IN AM
07/28/24 08:00
Amlodipine [Norvasc] 5 mg PO DAILY
Bupropion(24Hr)Extended Releas [WELLBUTRIN XL (24 hour extended release)] 150 mg PO DAILY
Pantoprazole [Protonix IV] 40 mg IV DAILY
Abnormal Lab Results
07/27/24 07/27/24
12:33 14:28
RBC 3.97 L 10^6/uL
(4.70-6.10)
MCV 100.5 H fL
(80.0-94.0)
MCH 33.2 H pg
(27.0-31.0)
Total Protein 6.2 L g/dl
(6.3-8.2)
07/27/24 12:33
07/27/24 14:28
Vital Signs
Initial and Last Documented VS:
Initial Vital Signs
Temp Pulse Resp BP Pulse Ox
97.6 F 90 16 136/86 98
07/27/24 11:58 07/27/24 11:58 07/27/24 11:58 07/27/24 11:58 07/27/24 11:58
Last Documented Vital Signs
Temp Pulse Resp BP Pulse Ox
97.6 F 70 16 124/69 95
07/27/24 11:58 07/27/24 13:00 07/27/24 14:00 07/27/24 13:00 07/27/24 13:00
MDM/Problems Addressed
Differential Diagnosis Includes:
78yoM here with n/v for >1 week since having a kidney stone surgery. Using ODT Zofran without relief. Lost 10 pounds within the past week. Became so weak today that he fell in the shower. VSS. Patient is well-appearing no acute distress. Abdominal
exam is benign. Differential diagnosis includes but is not limited to: Gastroenteritis, postoperative nausea, cyclic vomiting syndrome, dehydration
Initial ED plan: Check abdominal labs, troponin/EKG, UA, and head CT. IV Zofran and fluid bolus for symptoms.
*EKG
Interpreted by ED Provider?: Yes
EKG Intrepretation Date: 07/27/24
Heart Rate: 73
Rate: normal
Rhythm: sinus
[place]: normal axis
Interval: normal interval
QRS Pattern: normal QRS
Ischemia: no ischemia
*Critical Care Note
Total Time (30-74mins, 75-104mins- exclusive of procedures): Not Applicable
Update Note
Update Note:
Labs overall unremarkable including normal electrolytes and renal function. EKG shows normal sinus rhythm without ischemic changes and troponin within normal limits. UA bland without signs of infection. Head CT is negative. Patient and do
not feel comfortable taking him home due to his degree of weakness. Will admit for further management.
ED Attending Note
-
Portions of this chart may have been created with voice recognition software.� Occasional wrong word or��sound alike� substitutions may have occurred due to the inherent limitations of voice recognition software.
Discharge Plan
Departure
Patient Disposition: Admit
Date of Disposition: 07/27/24
Time of Disposition: 14:56
Presentation/result/management discussed w/ accepting MD/DO: Hospitalist
Discharge Problem:
Nausea and vomiting, Generalized weakness, Fall in shower, Closed head injury
Interventions
Interventions:
*Risk Screen - Suicide Last Done: 07/27/24 11:58
*General Assessment Last Done: 07/27/24 12:04
*Neglect/Abuse Screening Last Done: 07/27/24 11:58
*ED- Fall Risk Assessment Last Done: 07/27/24 12:04
*ED COVID-19 Vaccine History Last Done: 07/27/24 12:04
*Nursing Disposition Last Done: 07/27/24 16:46
LQ-[id number]-[id number] Assessment Last Done: 07/27/24 12:04
Discharge Date and Time
Discharge Date/Time: 07/27/24 16:46
[2024-07-27] MEDS: ZOFRAN 4 MG IV ×3 (12:35→23:34)
[2024-07-27] MEDS: NSS 500 IV (12:35)
[2024-07-27 12:45] LABS: % Basophils 0.7 % (0-2); % Eosinophils 5.5 % (0-6); % Immature Granulocytes 0.3 % (0-0.5); % Lymphocytes 22.4 % (20.5-51.1); % Neutrophils 63.1 % (42.2-75.2); Absolute Eosinophils 0.3 10^3/uL (0-0.7); Absolute Lymphocytes 1.3 10^3/uL (1.2-3.4); Absolute Monocytes 0.5 10^3/uL (0.1-0.6); Absolute Neutrophils 3.7 10^3/uL (1.4-6.5); Hematocrit 39.9 % (39.0-52.0); Hemoglobin 13.2 g/dL (13.0-18.0); Mean Corp Hgb Conc. 33.1 g/dL (33.0-37.0); Mean Corpuscular Hgb 33.2 pg (27.0-31.0); Mean Corpuscular Volume 100.5 fL (80.0-94.0); Mean Platelet Volume 10.1 fL (7.4-10.4); Nucleated Red Blood Cells % 0 % (-); Platelet Count 142 10^3/uL (130-400); Red Blood Cell Count 3.97 10^6/uL (4.70-6.10); Red Cell Dist. Width 13.8 % (11.5-14.5); White Blood Cell Count 5.8 10^3/uL (4.8-10.8)
[2024-07-27 13:00] VITALS: BP 124/69
[2024-07-27 13:51] LABS: Troponin I < 0.012 ng/ml
[2024-07-27 13:57] LABS: Blood Urea Nitrogen 15 mg/dl (9-20); Calcium 8.4 mg/dl (8.4-10.2); Carbon Dioxide 29 mmol/L (22-30); Chloride 101 mmol/L (98-107); Glucose 93 mg/dl (70-99); Lipase 38 U/L (23-300); Sodium 138 mmol/L (135-145); eGFR > 60.00
[2024-07-27 14:44] LABS: Urine Albumin Negative (Neg - Trace); Urine Bilirubin Negative (Negative); Urine Character Clear (Clear); Urine Color Yellow; Urine Glucose Negative (Negative); Urine Ketone Negative (Negative); Urine Leukocyte Negative (Negative); Urine Nitrite Negative (Negative); Urine Occult Blood Negative (Negative); Urine Specific Gravity 1.005 (<1.030); Urine Urobilinogen Negative (Neg - 1+)
[2024-07-27 14:48] LABS: ALT (SGPT) 20 U/L (0-50); AST (SGOT) 24 U/L (17-59); Albumin 3.7 g/dl (3.5-5.0); Alkaline Phosphatase 78 U/L (38-126); Direct Bilirubin 0.2 mg/dl (0.0-0.4); Magnesium 1.9 mg/dl (1.6-2.3); Potassium 4.4 mmol/L (3.5-5.1); Total Bilirubin 0.6 mg/dl (0.2-1.3); Total Protein 6.2 g/dl (6.3-8.2)
--- NOTE | 2024-07-27 15:26 | HPS.HSE ---
Family Physician
-
Family Physician: NOT KNOW UNKNOWN - PT DOES
Chief Complaint
-
intractable nausea and vomiting
History of Present Illness
HPI
78 HX fibromyalgia, chronic fatigue, SULEIMAN, postop nausea, GERD and constipation, recent HX Right ureteroscopy with laser lithotripsy and stent placement on for 06/21/2024 for Right-sided nephrolithiasis complicated with post op nausea, seen by
GI, recommended PPI BID seen at ER:
- evaluation for vomiting
- Recent cystoscopy with ureteral stent placement on 06/07/2024 as well as 06/21/2024 due to kidney stones.
- onset of post op nausea and vomiting shortly afterwards which has been ongoing.
- was admitted for several days after his second procedure due to his ongoing nausea.
- GI was consulted : believed he was having a prolonged response to the anesthesia. Tx with IV PPI as well as MiraLAX.
- Patient felt well while in the hospital but symptoms recurred shortly after returning home.
- Patient continues to have nausea and retching daily since then and reports wt loss 10 pounds over the past month.
- can tolerate oral intake at times.
- he has been increasingly weak to the point where he fell this morning while in the shower.
- He struck the back of his head but did not lose any consciousness.
- some mild abdominal discomfort but states this is not unusual for him.
- Last bowel movement was 2 days ago.
- He has had similar issues in the past after surgeries but this episode has been more severe.
Medical History
Past Medical History
Past Medical History: Reports Cancer (prostate ), Fibromyalgia, GERD, HTN, Hypothyroidism and Other (Recurrent nephrolithiasis. )
Past Surgical History: Reports Cholecystectomy and Urological ( Radical prostatectomy. Right ureteroscopy, laser lithotripsy and stent placed in May 2022. 4. Cystoscopy with bladder biopsy, bilateral ureteroscopy and laser lithotripsy of right
renal stones in October 2022. )
Social History
Tobacco: Non-smoker
Alcohol: None
Family History
Family History: Not pertinent
Allergies / Home Medications
Allergies reflects when Allergies were last updated in [facility].
Home Medications with original date entered in [facility]
Allergy/Medication List:
Allergies
Allergy/AdvReac Type Severity Reaction Status Date / Time
No Known Allergies Allergy Verified 07/27/24 12:01
Home Medications
amlodipine 5 mg tablet 5 mg PO DAILY 06/03/22
levothyroxine 50 mcg tablet 50 mcg PO DAILY 06/03/22
losartan 100 mg tablet 100 mg PO DAILY 06/03/22
modafinil 200 mg tablet 600 mg PO DAILY 06/03/22
pantoprazole 40 mg tablet,delayed release (Protonix) 40 mg PO DAILY 06/03/22
magnesium oxide 400 mg PO DAILY ##0 06/04/24
bupropion HCl 150 mg 24 hr tablet, extended release 150 mg PO DAILY 06/07/24
sertraline 50 mg tablet 50 mg PO DAILY 06/07/24
diclofenac sodium 1 % topical gel 2 g topical DAILYPRN PRN plantar fasciitis 07/27/24
ondansetron HCl 4 mg tablet 4 mg PO BIDPRN PRN nausea 07/27/24
Review of Systems
-
Constitutional: Reports Weight Loss
EENT: Reports No Symptoms
Respiratory: Reports No Symptoms
Cardiac: Reports No Symptoms
Abdomen/GI: Reports See HPI, Nausea and Vomiting
: Reports No Symptoms
Musculoskeletal: Reports No Symptoms
Skin: Reports No Symptoms
Neurological: Reports No Symptoms
Endocrine: Reports No Symptoms
Hematologic/Lymphatic: Reports No Symptoms
Psych: Reports No Symptoms
Physical Exam
Vital Signs
Vital Signs
Temp Pulse Resp BP Pulse Ox
97.6 F 70 16 124/69 95
07/27/24 11:58 07/27/24 13:00 07/27/24 14:00 07/27/24 13:00 07/27/24 13:00
Physical Exam
General: Well Developed, Well Nourished and No Apparent Distress
HEENT: NormoCephalic, Moist mucous membranes and Atraumatic
Respiratory: Clear
Cardiac: S1/S2 and Regular Rhythm; No Murmur or Rub
GI: Soft, Non Tender, Non Distended and Normal Bowel Sounds; No Organomegaly
Rectal: Deferred by Provider
Musculoskeletal: No Clubbing, No Cyanosis and No Edema
Skin: No Rash
Neuro: Nonfocal/grossly intact
Laboratory Results
-
07/27/24 12:33
07/27/24 14:28
Laboratory Results
Total Bilirubin 0.6 mg/dl (0.2-1.3) 07/27/24 14:28
AST 24 U/L (17-59) 07/27/24 14:28
ALT 20 U/L (0-50) 07/27/24 14:28
Alkaline Phosphatase 78 U/L (38-126) 07/27/24 14:28
Troponin I < 0.012 ng/ml 07/27/24 13:15
Lipase 38 U/L (23-300) 07/27/24 13:15
Data Reviewed
-
Medical Tests (Nuc Med, Echo, EKG etc): Report Reviewed by me
Lab Data: Labs Reviewed by me
Old Records: Reviewed
Impression/Plan
-
Selected Entries
06/21/24
07/27/24
07/27/24
Temp 97.6 F
Pulse 90
Resp Rate 16
Blood pressure 136/86
SaO2 98
Oxygen Mode of Delivery Room air
Actual Weight 75.75 kg 72.8 kg
Laboratory Tests
07/27/24 07/27/24 07/27/24
12:33 13:15 14:36
WBC 5.8
Hgb 13.2
Plt Count 142
BUN 15
Creatinine 0.8
eGFR > 60.00
Troponin I < 0.012
Urine Nitrite (Reflex) Negative
Leukocyte Esterase Rfl Negative
EKG
NORMAL SINUS RHYTHM
NONSPECIFIC T WAVE ABNORMALITY
ABNORMAL ECG
WHEN COMPARED WITH ECG OF 07-JUN-2024 08:08,
NO SIGNIFICANT CHANGE WAS FOUND
HCT: No acute intracranial abnormality noted.
Last DH admission to Uro service : 06/21/2024 - 06/23/2024
DISCHARGE DIAGNOSES:
1. Right-sided nephrolithiasis.
2. Postoperative nausea.
PROCEDURES PERFORMED:
Right ureteroscopy with laser lithotripsy and stent placement on 06/21/2024
ASSESSMENT & PLAN
Persisted N/V and constipation
Associated significant wt loss - nearly 3 kg over last 5- 6weeks
Fall with hit head but NEG HCT attributed to weakness
Recent HX post op nausea
HX GERD
- NEG HCT for acute pathology
- Non focal weakness by exam
- unremarkable labs
- NEG UA
- Empiric IV NS
- Full liquid diet and can ADAT
- c/w IV PPI daily
- BW regime PRN if no BM for > 2 days
- Empiric anti emetics PRN
- Hold PRN NSAIDS for now
- PT
- Fall precautions
NEG UA
Prostate CA HX
HX Recurrent nephrolithiasis.
Recent Right-sided nephrolithiasis.
S/P Right ureteroscopy with laser lithotripsy and stent placement on 06/21/2024
- Observe
Benign Hypertension
- stable
- c/w INSIDE SALES ADVISOR Amlodipine 5mg daily
- c/w INSIDE SALES ADVISOR Losartan 100mg daily
Hypothyroid
- check TSH
- c/w INSIDE SALES ADVISOR LT4 50mcg daily
HX SULEIMAN
Chronic fatigue.
Depression
- stable on Bupropion ER and sertraline 50 daily
DVT Px: SQH
Full code
IP MS
[2024-07-27 17:01] VITALS: BP 140/68
[2024-07-27] MEDS: NSS 1000 IV (17:19)
[2024-07-27] MEDS: MAALOX 30 ML PO (17:36)
[2024-07-27] MEDS: HEPARIN 5000 UNITS SC (20:02)
[2024-07-27 23:16] VITALS: BP 103/64
[2024-07-27] MEDS: TYLENOL 650 MG PO (23:33)
[2024-07-27] MEDS: ATIVAN 0.25 MG IV (23:34)
[2024-07-27] MEDS: NSS (PRESERVATIVE FREE) 0.125 ML IV (23:39)
[2024-07-28 06:49] LABS: Blood Urea Nitrogen 14 mg/dl (9-20); Calcium 7.9 mg/dl (8.4-10.2); Carbon Dioxide 29 mmol/L (22-30); Chloride 106 mmol/L (98-107); Glucose 87 mg/dl (70-99); Hematocrit 34.2 % (39.0-52.0); Mean Corp Hgb Conc. 32.2 g/dL (33.0-37.0); Mean Corpuscular Hgb 33.1 pg (27.0-31.0); Mean Platelet Volume 10.4 fL (7.4-10.4); Platelet Count 136 10^3/uL (130-400); Red Blood Cell Count 3.32 10^6/uL (4.70-6.10); Red Cell Dist. Width 14.1 % (11.5-14.5); Sodium 141 mmol/L (135-145); White Blood Cell Count 4.7 10^3/uL (4.8-10.8); eGFR > 60.00
[2024-07-28 06:57] LABS: Potassium 4.3 mmol/L (3.5-5.1)
[2024-07-28 07:00] VITALS: BP 114/59
[2024-07-28 07:18] LABS: TSH 0.32 uIU/ml (0.47-4.68)
[2024-07-28] MEDS: NSS 1000 IV ×2 (08:24→18:33)
[2024-07-28] MEDS: NSS (PRESERVATIVE FREE) 10 ML IV (08:24)
[2024-07-28] MEDS: HEPARIN 5000 UNITS SC ×2 (08:25→20:00)
[2024-07-28] MEDS: NORVASC 5 MG PO (08:25)
[2024-07-28] MEDS: PROTONIX IV 40 MG IV (08:25)
[2024-07-28] MEDS: WELLBUTRIN XL (24 hour extended release) 150 MG PO (08:25)
--- NOTE | 2024-07-28 08:29 | W.PN.HOSP.TC ---
Today's Communication/Plan
-
CT imaging of the abdomen pelvis with contrast
PT -- likely will need acute rehab or SNF as patient cannot function at home with current level of generalized weakness and fatigue
Assessment / Plan
Assessment / Plan
Physical Exam
General: Not in acute distress
HEENT: Normocephalic, Moist mucous membranes
Respiratory: Clear to Auscultation Bilaterally
Cardiac: S1/S2 and Regular Rhythm
GI: Soft, Non Tender, Non Distended and Normal Bowel Sounds
Musculoskeletal: No Cyanosis and No Edema
Skin: Warm. Dry.
Neuro: AAOx3. Nonfocal/grossly intact
Assessment/Plan
78 y/o male with past medical history of fibromyalgia, chronic fatigue, SULEIMAN, postop nausea, GERD and constipation, history of recurrent hematuria, recurrent prostate cancer after
radical prostatectomy, nephrolithiasis, recent history of cystoscopy, bilateral retrograde pyelograms, first stage right ureteroscopy with laser lithotripsy, and stent placement (on 06/07/24) followed by right ureteroscopy with right-sided stone
extraction, cystoscopy, stent replacement (with Dr. Zack Prakash) on 06/21/2024 for right-sided nephrolithiasis complicated with post op nausea, followed days later by vomiting, burping, decreased appetite and generalized weakness -- laying down for
weeks at a time (but when able to keep down food, felt like 'bowling ball' inside stomach with increased tiredness) eventually saw GI outpatient (Dr. Moisés Nieves) who mentioned to him maybe his symptoms were due to urologic instrumentation and
possibly prolonged response to anesthesia, recommended sublingual Zofran (which he said didn't really work for him -- but the IV one here in the hospital did work), recommended PPI BID+Miralax, now coming into the ER for those symptoms including GI
symptoms as above, weakness and fall.
Patient said he had a few other surgeries in the past and this always happens after the surgeries and lasts a while, but this time is the worst it has been. He has also had 10-pound weight loss. At the time of admission, some abdominal discomfort
(but he said that is NOT unusual for him) -- last bowel movement was about 2 days prior to presentation. On the day of presentation, he fell while in the shower because of his generalized weakness; he struck the back of his head but did not pass
out.

Persistent symptoms (since urology surgery on 06/21/24): nausea, vomiting, burping, decreased appetite and generalized weakness -- laying down for weeks at a time (but when able to keep down food, felt like 'bowling ball' inside stomach with
increased tiredness)/Fatigue
Weight loss -- likely from decreased appetite, inability to keep food down at times
Recent History of post op nausea
- See patient synopsis/history above -- was previously attributed to prolonged effect from anesthesia/urologic instrumentation. Need to look at other etiologies, including any GI
pathology (will check CT to start)
- He has been having bowel movements
- TSH low, check free T4
- Patient/his family requested cortisol check -- will order AM cortisol
- Check CT Abdomen/Pelvis
- Finish the bag of current intravenous fluids
- Advance diet as tolerated to Regular diet (since not eating well, put in Regular diet)
- c/w IV PPI daily
- Bowel regimen
- Zofran as needed for nausea/vomiting with prn Compazine for symptoms unrelieved with Zofran
- Monitor QTc given the above -- EKG ordered for tomorrow morning
- Given generalized weakness, he needs SNF
- PT
- Fall precautions
Fall with head trauma
-CT Head negative
-No neurological deficits noted and no headache
History of Prostate Cancer status post radical prostatectomy
History of Recurrent nephrolithiasis
Right ureteroscopy, laser lithotripsy and stent placed in May 2022
Cystoscopy with bladder biopsy, bilateral ureteroscopy and laser lithotripsy of right renal stones in October 2022.
Recent history of cystoscopy, bilateral retrograde pyelograms, first stage right ureteroscopy with laser lithotripsy, and stent placement (on 06/07/24) followed by right ureteroscopy with right-sided stone extraction, cystoscopy, stent replacement
(with Dr. Zack Prakash) on 06/21/2024 for right-sided nephrolithiasis
Hypertension
- stable
- c/w MEDIA CLERK Amlodipine 5mg daily
- c/w MEDIA CLERK Losartan 100mg daily
Hypothyroidism
- TSH low at 0.32
- Check free T4
- c/w MEDIA CLERK LT4 50mcg daily
GERD
-Continue PPI
History of Cholecystectomy
Sleep Apnea
Chronic fatigue.
Depression
- stable on Bupropion ER and sertraline 50 daily
DVT Prophylaxis: Heparin subq through today, but placed order for starting Lovenox tomorrow
Code Status: Full code
Anticipated Discharge: 24 - 48 hours
Subjective/Interval History
-
Date of Service: July 28, 2024
Patient was seen and examined. He reported continued burping, nausea on and off, generalized weakness and decreased appetite.
Objective Data
-
Labs:
Laboratory Results
07/28/24
05:30
WBC 4.7 L
Hgb 11.0 L
Hct 34.2 L
Plt Count 136
Sodium 141
Potassium 4.3
Chloride 106
Carbon Dioxide 29
BUN 14
Creatinine 0.8
Glucose 87
Calcium 7.9 L
Vital Signs:
Vital Signs
Temp Pulse Resp BP Pulse Ox
98.0 F 65 18 114/59 95
07/28/24 07:00 07/28/24 08:25 07/28/24 07:00 07/28/24 08:25 07/28/24 07:00
I&O
07/27/24 07/28/2407/29/25
06:59 06:59 06:59
Intake Total 720 / 720
Output Total 600 / 600
Balance 120 / 120
[2024-07-28] MEDS: ZOFRAN 4 MG IV ×2 (08:38→18:36)
[2024-07-28 09:01] LABS: Albumin 3.4 g/dl (3.5-5.0)
[2024-07-28 15:00] VITALS: BP 122/64
--- NOTE | 2024-07-28 15:29 | CM ---
Initial assessment completed with pt at bedside.
Pt is a 78yr old male admitted with intractable nausea and vomiting. Pt also commenting on weight loss and weakness associated.
Pt was previously admitted to in 06/11 for ureteral stent and in 07/09 for kidney stones.
At baseline, pt lives with his in a 4 level home that has 1 step to enter. Pts Bedroom/Bath is on the 2nd floor,but he chooses to use the bathroom on the 3rd floor for the extra exercise. Per pt, there are 7 bathrooms and various options on
each level.
Pt is independent and active at baseline; and drives. Pt does not actively use equipment at home, but does have a cane that he uses occasionally.
No Hx of VN/SNF. SW talked about VN, and pt voices interest if appropriate.
PCP; [facility]
Pharm; [facility] [facility]
PLAN; Home with VN
[2024-07-28] MEDS: MELATONIN 5 MG PO (22:40)
[2024-07-28 23:35] VITALS: BP 119/68
[2024-07-29] MEDS: MAALOX 30 ML PO (04:46)
[2024-07-29] MEDS: OMNIPAQUE 50 ML PO (06:06)
[2024-07-29] MEDS: NSS 1000 IV (06:30)
--- NOTE | 2024-07-29 06:34 | W.PN.HOSP.TC ---
Today's Communication/Plan
-
complete IVF
increased protonix BID
daily miralax hold if diarrhea
GI eval
PT eval
Assessment / Plan
Assessment / Plan
Physical Exam
General: no acute distress, appears comfortable at this time
HEENT: Normocephalic, Moist mucous membranes
Respiratory: Clear to Auscultation Bilaterally
Cardiac: S1/S2 and Regular Rhythm
GI: Soft, Non Tender, Non Distended and Normal Bowel Sounds
Musculoskeletal: No Cyanosis and No Edema
Skin: Warm. Dry.
Neuro: AOx3 conversant coherent
Assessment/Plan
78 y/o male with past medical history of fibromyalgia, chronic fatigue, SULEIMAN, postop nausea, GERD and constipation, history of recurrent hematuria, recurrent prostate cancer after
radical prostatectomy, nephrolithiasis, recent history of cystoscopy, bilateral retrograde pyelograms, first stage right ureteroscopy with laser lithotripsy, and stent placement (on 06/07/24) followed by right ureteroscopy with right-sided stone
extraction, cystoscopy, stent replacement (with Dr. Zack Prakash) on 06/21/2024 for right-sided nephrolithiasis complicated with post op nausea, followed days later by vomiting, burping, decreased appetite and generalized weakness -- laying down for
weeks at a time (but when able to keep down food, felt like 'bowling ball' inside stomach with increased tiredness) eventually saw GI outpatient (Dr. Moisés Nieves) who mentioned to him maybe his symptoms were due to urologic instrumentation and
possibly prolonged response to anesthesia, recommended sublingual Zofran (which he said didn't really work for him -- but the IV one here in the hospital did work), recommended PPI BID+Miralax, now coming into the ER for those symptoms including GI
symptoms as above, weakness and fall.
Patient said he had a few other surgeries in the past and this always happens after the surgeries and lasts a while, but this time is the worst it has been. He has also had 10-pound weight loss. At the time of admission, some abdominal discomfort
(but he said that is NOT unusual for him) -- last bowel movement was about 2 days prior to presentation. On the day of presentation, he fell while in the shower because of his generalized weakness; he struck the back of his head but did not pass
out.

Persistent symptoms (since urology surgery on 06/21/24): nausea, vomiting, burping, decreased appetite and generalized weakness
Weight loss -- likely from decreased appetite, inability to keep food down at times
Recent History of post op nausea
Suspect Symptoms d/t combination GERD and Constipation
- CT abd/pelvis appreciated no acute abn's
- TSH low, free T4 wnl
- Cortisol appreciated wnl
-IVF completed
- Tolerating Low Residue diet
- c/w IV PPI daily increased to BID
- Miralax daily hold if diarrhea
- Zofran Compazine prn nausea
- EKG eval appreciated no QT prolongation
- PT eval requested
- Fall precautions
- GI eval appreciated outpatient follow up recommended
Fall with head trauma prior to admission
-CT Head negative for acute abn's
History of Prostate Cancer status post radical prostatectomy
History of Recurrent nephrolithiasis
Right ureteroscopy, laser lithotripsy and stent placed in May 2022
Cystoscopy with bladder biopsy, bilateral ureteroscopy and laser lithotripsy of right renal stones in October 2022.
Recent history of cystoscopy, bilateral retrograde pyelograms, first stage right ureteroscopy with laser lithotripsy, and stent placement (on 06/07/24) followed by right ureteroscopy with right-sided stone extraction, cystoscopy, stent replacement
(with Dr. Zack Prakash) on 06/21/2024 for right-sided nephrolithiasis
Hypertension
- stable
- c/w PASSENGER LOCOMOTIVE ENGINEER Amlodipine 5mg daily
- home Losartan 100mg daily on hold d/t relative hypotension/soft pressures, will cont to monitor, consider resuming at reduced dose or discontinuing altogether depending on bp trends
Hypothyroidism
- TSH low at 0.32
- free T4 wnl
- c/w PASSENGER LOCOMOTIVE ENGINEER LT4 50mcg daily
-repeat TFTs in 1 mo
GERD
-Continue PPI increased dose as above
History of Cholecystectomy
Sleep Apnea
Chronic fatigue.
Depression
- cont home Bupropion ER and sertraline 50 daily
- hold home modafinil for now unclear if necessary, may benefit from reduced dose (also possibly contributing to symptoms dyspepsia constipation anorexia/appetite loss)
DVT Prophylaxis: Lovenox
Code Status: Full code
I spent a total of 45 minutes with the patient or on the floor. More than 50% of this time involved counseling and coordination of care.
Anticipated Discharge: Within 24 hours
Subjective/Interval History
-
Date of Service: July 29, 2024
No acute distress resting comfortably in bed. reports persistence nausea belching though appears to be tolerating diet. Noted large bowel movement yesterday.
Objective Data
-
Labs:
Laboratory Results
07/29/24
06:04
WBC Pending
Hgb Pending
Hct Pending
Plt Count Pending
Sodium Pending
Potassium Pending
Chloride Pending
Carbon Dioxide Pending
BUN Pending
Creatinine Pending
Glucose Pending
Calcium Pending
Vital Signs:
Vital Signs
Temp Pulse Resp BP Pulse Ox
98.1 F 72 16 119/68 97
07/28/24 23:35 07/28/24 23:35 07/28/24 23:35 07/28/24 23:35 07/28/24 23:35
I&O
07/27/24 07/28/24 07/29/24
06:59 06:59 06:59
Intake Total 720 / 720 1320 / 1320
Output Total 600 / 600 2124 / 2124
Balance 120 / 120 -805 / -805
[2024-07-29 06:54] LABS: Hematocrit 35.9 % (39.0-52.0); Hemoglobin 11.8 g/dL (13.0-18.0); Mean Corp Hgb Conc. 32.9 g/dL (33.0-37.0); Mean Corpuscular Hgb 33.4 pg (27.0-31.0); Mean Corpuscular Volume 101.7 fL (80.0-94.0); Mean Platelet Volume 10.4 fL (7.4-10.4); Platelet Count 130 10^3/uL (130-400); Red Blood Cell Count 3.53 10^6/uL (4.70-6.10); Red Cell Dist. Width 14.1 % (11.5-14.5); White Blood Cell Count 4.2 10^3/uL (4.8-10.8)
[2024-07-29 07:13] LABS: Blood Urea Nitrogen 11 mg/dl (9-20); Carbon Dioxide 27 mmol/L (22-30); Chloride 105 mmol/L (98-107); Glucose 96 mg/dl (70-99); Potassium 4.5 mmol/L (3.5-5.1); Sodium 141 mmol/L (135-145); eGFR > 60.00
[2024-07-29 07:14] VITALS: BP 157/76
[2024-07-29 07:30] LABS: Free T4 1.02 ng/dl (0.78-2.19)
[2024-07-29 07:44] LABS: Cortisol, Random 7.8 ug/dl
[2024-07-29] MEDS: WELLBUTRIN XL (24 hour extended release) 150 MG PO (09:34)
[2024-07-29] MEDS: NSS (PRESERVATIVE FREE) 10 ML IV ×2 (09:34→21:29)
[2024-07-29] MEDS: NORVASC 5 MG PO (09:34)
[2024-07-29] MEDS: PROTONIX IV 40 MG IV ×2 (09:35→21:29)
--- NOTE | 2024-07-29 13:43 | CM ---
front office manager reviewed patient's chart and plan is to home when stable.
Plan; Home when stable. No needs.
--- NOTE | 2024-07-29 15:17 | CON.GI ---
Addendum entered and electronically signed by Jocelyn Garcia Do, MD 07/29/24 16:08:
I saw and examined the patient.
The HELPER SHEAR OPERATOR's note was reviewed and I agree with the note.
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 By time GI consulted symptoms resolved. He ate 100% of lunch steak and
vegetables without issues. Constipation preceded this and generally after anesthesia for ureteral stent placement 06/07 and 06/21/24 symptoms worsen. He denies stress but tells us that he lost 4million dollars in stock market recently and has to
undergo treatment for recurrence of prostate cancer through Dr Prakash.
Impression
- N/V now resolved
suspect related to IBS and chronic GERD
- Prostate cancer
- Fibromyalgia
- Constipation possible IBS
- GERD
- SULEIMAN
Recommendations
- C/w PPI BID
- At home do benefiber one tablespoon in 8oz fluid daily
- Miralax daily
- Tolerating low residue diet
- Would benefit from OP EGD. My card given and he will FU with me in the office
GI will sign off please call for ?
Original Note:
Consultation
-
Date/Time Consultation Requested: 07/29/24 1411
Date/Time Consultation Performed: 07/30/24 1500
Requesting Provider: Mandy Taylor MD
Performing Provider: GLADYS Santiago, Jocelyn Burnette MD
Reason for Consultation: nausea.vomiting
Medical History
Chief Complaint / HPI
History of Present Illness:
Pt is a 78yo with hx prostate CA 25 years ago with prior prostatectomy with recent rise in PSA, fibromyalgia, GERD,SULEIMAN, chronic fatigue, constipation, hypothyroidism, recurrent renal stones with multiple urologic procedures with recent ureteral
stent placement 06/07/24 and 06/21/24. He was seen by GI in June with similar symptoms and thought to be related to post urologic symptoms. He now presents with continued issue with nausea, retching and vomiting despite procedures several weeks ago.
In review with patient he admits to 3 times per week with nausea and vomiting bile but then will be able to eat a full meal. Pt has formally followed with Dr. Moisés Nieves in [facility]. He does have hx GERD and takes Pantoprazole daily
and Pepcid as needed.
Pt otherwise denies odynophagia, dsyphagia, abdominal pain, fecal leakage, blood or black in stools. Pt has had some wt loss since 2022 per chart and admits to 10 lbs recent loss. He admits to some chronic pain with use of NSAID about 3 tabs
per month. He also admits to some issue with sciatica and decreased mobility. Hx EGD and colonoscopy about 5 years ago with distant hx polyps. Pt does take Metamucil 2 tabs daily. TSH now with normal T4.
Past Medical History
Past Medical History: Cancer (prostate Ca with prior prostatectomy with recent rise in PSA), Fibromyalgia, GERD and Other (SULEIMAN, chronic Fatigue, constipation, polyps)
Past Surgical History: Cholecystectomy and Urological (radial prostatectomy, right ureteroscopy, laser lithotripsy and stent placement May 2022, Cystoscopy with bladder biopsy, bilateral ureteroscopy and laser lithotripsy of right renal stones in
October 2022, right ureteroscopy with laser lithotripsy and stent placement 06/07 + 06/21 for right sided stone )
Social History
Tobacco: Non-Smoker
Alcohol: None
Drug: None
Employment: Retired
Family History
Family History: Reviewed & Not Pertinent
Allergies / Home Medications
Allergy/AdvReac Type Severity Reaction Status Date / Time
No Known Allergies Allergy Verified 07/27/24 12:01
�Medication �Instructions �Recorded
amlodipine 5 mg tablet 5 mg PO DAILY 06/03/22
levothyroxine 50 mcg tablet 50 mcg PO DAILY 06/03/22
losartan 100 mg tablet 100 mg PO DAILY 06/03/22
modafinil 200 mg tablet 600 mg PO DAILY 06/03/22
pantoprazole 40 mg tablet,delayed 40 mg PO DAILY 06/03/22
release (Protonix)
magnesium oxide 400 mg PO DAILY ##0 06/04/24
bupropion HCl 150 mg 24 hr tablet, 150 mg PO DAILY 06/07/24
extended release
sertraline 50 mg tablet 50 mg PO DAILY 06/07/24
diclofenac sodium 1 % topical gel 2 g topical DAILYPRN PRN plantar 07/27/24
fasciitis
ondansetron HCl 4 mg tablet 4 mg PO BIDPRN PRN nausea 07/27/24
Review of Systems
-
History Source: Patient
Constitutional: Reports Weight Loss (10 lbs recent loss ) and Fatigue
EENT: Reports No Symptoms
Respiratory: Reports No Symptoms
Cardiac: Reports No Symptoms
Abdomen/GI: Reports Nausea and Vomiting
: Reports Other (recent urologic procedures )
Musculoskeletal: Reports Other (back pain with recent steroid infection, some difficulty walking with leg issues )
Skin: Reports No Symptoms
Neurological: Reports No Symptoms
Endocrine: Reports No Symptoms
Hematologic/Lymphatic: Reports No Symptoms
Vital Signs
Temp Pulse Resp BP Pulse Ox
97.4 F 61 18 157/76 96
07/29/24 07:14 07/29/24 09:34 07/29/24 07:14 07/29/24 09:34 07/29/24 07:14
Physical Exam
Exam
General: Well Developed, Well Nourished and No Apparent Distress
HEENT: Normocephalic and Anicteric
Respiratory: Clear
Cardiac: Regular Rhythm
GI: Soft, Non Tender and Non Distended
Musculoskeletal: No Clubbing and No Cyanosis
Skin: Warm and Dry
Neuro: Awake, Alert and AO x 3
Psych: Calm
Results
WBC 4.2 10^3/uL (4.8-10.8) L 07/29/24 06:04
Hgb 11.8 g/dL (13.0-18.0) L 07/29/24 06:04
Hct 35.9 % (39.0-52.0) L 07/29/24 06:04
MCV 101.7 fL (80.0-94.0) H 07/29/24 06:04
Plt Count 130 10^3/uL (130-400) 07/29/24 06:04
Absolute Neuts (auto) 3.7 10^3/uL (1.4-6.5) 07/27/24 12:33
Sodium 141 mmol/L (135-145) 07/29/24 06:04
Potassium 4.5 mmol/L (3.5-5.1) 07/29/24 06:04
Chloride 105 mmol/L (98-107) 07/29/24 06:04
Carbon Dioxide 27 mmol/L (22-30) 07/29/24 06:04
BUN 11 mg/dl (9-20) 07/29/24 06:04
Creatinine 0.8 mg/dL (0.7-1.3) 07/29/24 06:04
Calcium 8.0 mg/dl (8.4-10.2) L 07/29/24 06:04
Total Bilirubin 0.6 mg/dl (0.2-1.3) 07/27/24 14:28
AST 24 U/L (17-59) 07/27/24 14:28
ALT 20 U/L (0-50) 07/27/24 14:28
Alkaline Phosphatase 78 U/L (38-126) 07/27/24 14:28
Lipase 38 U/L (23-300) 07/27/24 13:15
Diagnostic Image Results:
07/29/24 CT Abd/pelvis W Iv Cont
No intestinal obstruction or free air. Descending colon and sigmoid diverticulosis.
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
Prior cholecystectomy.
Small simple renal cysts, additional subcentimeter low-attenuation right renal lesions too small to characterize and at least one hyperdense right renal cyst. Symmetric renal excretion.
Prior prostatectomy.
Prior GI Procedures:
EGD: last [address] Moisés Nieves
Colonoscopy: last about [address] Moisés Nieves
Assessment / Plan
-
Pt is a 78yo with hx prostate CA 25 years ago with prior prostatectomy with recent rise in PSA, fibromyalgia, GERD,SULEIMAN, chronic fatigue, constipation, hypothyroidism, recurrent renal stones with multiple urologic procedures with recent ureteral
stent placement 06/07/24 and 06/21/24. He was seen by GI in June with similar symptoms and thought to be related to post urologic symptoms. He now presents with continued issue with nausea, retching and vomiting despite procedures several weeks ago.
He admits to about 10 lbs wt loss. In review with patient he admits to 3 times per week with nausea and vomiting bile but then will be able to eat a full meal. Pt has formally followed with Dr. Moisés Nieves in [facility]. He does have
hx GERD and takes Pantoprazole daily and Pepcid as needed.
-nausea/vomiting with dry heaves, belching since urologic procedure in June
-hx prostate CA with recent rise in PSA
-recent ureteral stent placement 06/07/24 and 06/21/24
-hx GERD
-hx constipation
other med problems:
-fibromyalgia
-GERD
-SULEIMAN
-chronic fatigue
-hypothryroidism
-hx colon polyps
PLAN:
Etiology of continued nausea unclear-- related to recent urologic procedure, recent rise in PSA, IBS-constipation, GERD vs other
pt did eat full meal today-- encourage to continue diet
agree with regiment of PPI BID
cont Miralax daily
discussed changing Metamucil to benefiber 1 tablespoon daily
OP follow up 3-4 weeks t/c OP EGD/ colonoscopy if symptoms persist
-
-
Thank you for consultation and allowing me to participate in the patient's care. Please call the ent surgeon GI physician during the after hours with any questions or concerns.
[2024-07-29 15:30] VITALS: BP 110/65
[2024-07-29] MEDS: MIRALAX 17 GRAMS PO (15:52)
[2024-07-29] MEDS: LOVENOX 40 MG SC (17:31)
[2024-07-29] MEDS: MELATONIN 5 MG PO (21:29)
[2024-07-29 23:52] VITALS: BP 121/72
[2024-07-30] MEDS: MAALOX 30 ML PO (02:27)
[2024-07-30 06:00] VITALS: BMI 24.2
[2024-07-30] MEDS: SYNTHROID 50 MCG PO (06:19)
--- NOTE | 2024-07-30 06:22 | W.PN.HOSP.TC ---
Addendum entered and electronically signed by Amanda Taylor MD 07/30/24 16:21:
Mild Macrocytic Anemia likely 2/2 Folate Deficiency
-multivitamin supplementation started
Original Note:
Today's Communication/Plan
-
discharge
Assessment / Plan
Assessment / Plan
Physical Exam
General: no acute distress, appears comfortable at this time
HEENT: Normocephalic, Moist mucous membranes
Respiratory: Clear to Auscultation Bilaterally
Cardiac: S1/S2 and Regular Rhythm
GI: Soft, Non Tender, Non Distended and Normal Bowel Sounds
Musculoskeletal: No Cyanosis and No Edema
Skin: Warm. Dry.
Neuro: AOx3 conversant coherent
Assessment/Plan
78M Fibromyalgia, Chronic fatigue, SULEIMAN, history of recurrent hematuria, recurrent prostate cancer after radical prostatectomy, nephrolithiasis, recent history of cystoscopy, bilateral retrograde pyelograms, first stage right ureteroscopy with laser
lithotripsy, and stent placement (on 06/07/24) followed by right ureteroscopy with right-sided stone extraction, cystoscopy, stent replacement (with Dr. Zack Prakash) on 06/21/2024 for right-sided nephrolithiasis complicated with postop
nausea/GERD/constipation/appetite loss/generalized weakness. Patient reported similar issues in past with other surgical interventions. On the day of presentation, pt also reported fall while in the shower because of his generalized weakness; he
struck the back of his head but did not pass out.
Suspect Symptoms d/t combination GERD and Constipation
- CT abd/pelvis appreciated no acute abn's
- TSH low, free T4 wnl
- Cortisol appreciated wnl
- Tolerating Low Residue diet
-IVF completed
- c/w IV PPI daily increased to BID
- Miralax daily hold if diarrhea
- Zofran Compazine prn nausea
- EKG eval appreciated no QT prolongation
- PT eval appreciated no needs
- Fall precautions
- GI eval appreciated outpatient follow up recommended for EGD, home benefiber one tablespoon in 8 oz fluid daily
Fall with head trauma prior to admission
-CT Head negative for acute abn's
-no significant symptoms head trauma noted, pain free
History of Prostate Cancer status post radical prostatectomy
History of Recurrent nephrolithiasis
Right ureteroscopy, laser lithotripsy and stent placed in May 2022
Cystoscopy with bladder biopsy, bilateral ureteroscopy and laser lithotripsy of right renal stones in October 2022.
Recent history of cystoscopy, bilateral retrograde pyelograms, first stage right ureteroscopy with laser lithotripsy, and stent placement (on 06/07/24) followed by right ureteroscopy with right-sided stone extraction, cystoscopy, stent replacement
(with Dr. Zack Prakash) on 06/21/2024 for right-sided nephrolithiasis
Hypertension
- stable
- c/w DUST COLLECTOR Amlodipine 5mg daily
- home Losartan 100mg daily on hold d/t relative hypotension/soft pressures, recommend to cont hold on discharge, outpt follow up with primary to determine when safe to resume, if necessary to resume, if reduced dosing should be considered, and/or
if an alternative agent is required instead.
Hypothyroidism
- TSH low at 0.32
- free T4 wnl
- c/w DUST COLLECTOR LT4 50mcg daily
-repeat TFTs in 1 mo
GERD
-Continue PPI increased dose as above
History of Cholecystectomy
Sleep Apnea
Chronic fatigue.
- home modafinil resumed at reduced dose 400 mg daily (600 mg dose high, possibly contributing to symptoms dyspepsia constipation anorexia/appetite loss)
Depression
- cont home Bupropion ER and sertraline 50 daily
DVT Prophylaxis: Lovenox
Code Status: Full code
Medically stable for discharge home with outpatient follow up recommendations.
Total Time Preparing Discharge ___40____ minutes including examination of the patient, summary of the hospital stay, instructions for continuing care to all relevant caregivers; and preparation of discharge records, prescriptions, and referral
forms if necessary.
Anticipated Discharge: Today
Subjective/Interval History
-
Date of Service: July 30, 2024
No acute distress resting comfortably in bed. noted nausea last night denied vomiting. Symptoms however overall improved. Tolerating diet. Looking forward to going home.
Objective Data
-
Labs:
Laboratory Results
07/30/24
06:00
WBC Pending
Hgb Pending
Hct Pending
Plt Count Pending
Sodium Pending
Potassium Pending
Chloride Pending
Carbon Dioxide Pending
BUN Pending
Creatinine Pending
Glucose Pending
Calcium Pending
Vital Signs:
Vital Signs
Temp Pulse Resp BP Pulse Ox
98.0 F 70 18 121/72 96
07/29/24 23:52 07/29/24 23:52 07/29/24 23:52 07/29/24 23:52 07/29/24 23:52
I&O
07/28/24 07/29/24 07/30/24
06:59 06:59 06:59
Intake Total 720 / 720 1320 / 1320 240 / 240
Output Total 600 / 600 2125 / 2125 1450 / 1450
Balance 120 / 120 -805 / -805 -1210 / -1210
[2024-07-30] MEDS: ZOFRAN 4 MG IV (06:24)
[2024-07-30 07:52] VITALS: BP 128/65
[2024-07-30] MEDS: MIRALAX 17 GRAMS PO (07:58)
[2024-07-30] MEDS: PROTONIX IV 40 MG IV (07:59)
[2024-07-30] MEDS: WELLBUTRIN XL (24 hour extended release) 150 MG PO (07:59)
[2024-07-30] MEDS: NSS (PRESERVATIVE FREE) 10 ML IV (07:59)
[2024-07-30] MEDS: NORVASC 5 MG PO (08:15)
[2024-07-30 08:31] LABS: Hematocrit 37.4 % (39.0-52.0); Hemoglobin 12.5 g/dL (13.0-18.0); Mean Corp Hgb Conc. 33.4 g/dL (33.0-37.0); Mean Corpuscular Hgb 33.7 pg (27.0-31.0); Mean Corpuscular Volume 100.8 fL (80.0-94.0); Mean Platelet Volume 10.2 fL (7.4-10.4); Platelet Count 143 10^3/uL (130-400); Red Blood Cell Count 3.71 10^6/uL (4.70-6.10); Red Cell Dist. Width 13.6 % (11.5-14.5); White Blood Cell Count 4.3 10^3/uL (4.8-10.8)
[2024-07-30 08:35] LABS: Blood Urea Nitrogen 12 mg/dl (9-20); Calcium 8.3 mg/dl (8.4-10.2); Carbon Dioxide 29 mmol/L (22-30); Chloride 101 mmol/L (98-107); Estimated Creatinine Clearance 77 ml/min; Glucose 92 mg/dl (70-99); Magnesium 1.8 mg/dl (1.6-2.3); Phosphorus 3.4 mg/dl (2.5-4.5); Potassium 4.5 mmol/L (3.5-5.1); Sodium 139 mmol/L (135-145); eGFR > 60.00
[2024-07-30 09:37] VITALS: BP 154/78; PULSE 72; O2SAT 96
[2024-07-30 12:37] LABS: Folate 2.4 ng/ml (2.76-20); Vitamin B12 485 pg/ml (239-931)
--- NOTE | 2024-07-30 14:03 | CM ---
Chart reviewed, home when stable, no needs.
Plan; Home no needs when stable.
[2024-07-30 15:26] VITALS: BP 114/65
--- NOTE | 2024-07-30 16:35 | W.DCSUMMARY ---
Discharge Summary
Discharge Data
Date of Admission: 07/27/24
Date of Discharge: 07/30/24
-
Pending Results: No
Discharge Plan
-
Patient Disposition: Home (Routine Discharge)
Discharge Diagnosis/Procedures: Nausea/Vomiting/Appetite Loss likely secondary to combination GERD and Constipation/Possible Irritable Bowel Syndrome
Mild Macrocytic Anemia likely 2/2 Folate Deficiency
Abnormal Thyroid Function test (Mild Low TSH but normal Free T4 Level)
Condition: Fair
Diet: Regular
Activity: As tolerated
Driving Restrictions: As prior to admission
Bathing Restrictions: None
Blood Work: Repeat CBC and Folate level with primary care provider in 1 week of discharge.
Repeat Thyroid Function test with primary care provider in 1 month of discharge
Activity Restrictions/Additional Instructions:
Follow up with primary care provider in 1 week of discharge and GI in 4-8 weeks of discharge.
Protonix increased to twice a day for GERD, follow up with primary care provider or GI to determine when dose can be reduced.
Maalox prescribed as needed for heartburn.
For constipation stop metamucil and trial 1 tablespoon benefiber daily in 8 oz fluid.
Miralax has also been prescribed for constipation. Hold if diarrhea.
Multivitamin has been prescribed for Folate Deficiency.
Due to concerns high dose modafinil may be contributing to your symptoms (dyspepsia constipation anorexia/appetite loss), it is recommended that you reduce your dose to 400 mg daily.
Losartan has been placed on hold due to soft/low normotensive pressures. Possible hypotension contributing to weakness/falls. Follow up with primary care provider and/or other healthcare provider involved in your care to determine when safe to
resume, if necessary to resume, if dose adjustment is required, and/or if an alternative agent is required instead.
Please take medications as prescribed/recommended and follow up with primary care provider or other healthcare provider involved in your care for refills and/or further adjustment to your medication regimen as necessary.
Referrals:
Jocelyn Burnette MD [Active] - (call [phone] ext [phone] to arrange GI follow up using blocked time in 4-8 wks)
UNKNOWN - PT DOES,NOT KNOW [Family Provider] -
Additional Discharge Medication Instructions: stop metamucil and trial 1 tablespoon benefiber daily
Prescriptions:
New
alum-mag hydroxide-simeth [Mag-Al Plus] 200-200-20 mg/5 mL Suspension
30 ml PO Q6HPRN PRN (Reason: Heartburn) Qty: 3000 0RF
multivitamin with folic acid [Tab-A-Chance] 400 mcg Tablet
1 tab PO DAILY Qty: 30 0RF
polyethylene glycol 3350 17 gram Powder In Packet
17 g PO DAILY Qty: 30 0RF
Rx Instructions:
hold if diarrhea
Continued
amlodipine 5 mg Tablet
5 mg PO DAILY
levothyroxine 50 mcg Tablet
50 mcg PO DAILY
magnesium oxide 400 mg magnesium Tablet
400 mg PO DAILY Qty: 0
sertraline 50 mg Tablet
50 mg PO DAILY
bupropion HCl 150 mg Tablet Extended Release 24 Hr
150 mg PO DAILY
ondansetron HCl 4 mg Tablet
4 mg PO BIDPRN PRN (Reason: nausea)
diclofenac sodium 1 % Gel
2 g TOPICAL DAILYPRN PRN (Reason: plantar fasciitis)
Changed
pantoprazole [Protonix] 40 mg Tablet,Delayed Release (Dr/Ec)
40 mg PO BID Qty: 60 0RF
modafinil 200 mg Tablet
400 mg PO DAILY Qty: 0 0RF
Held
losartan 100 mg Tablet
100 mg PO DAILY
Hold Instructions: Follow up with primary care provider or other healthcare provider involved in your care to determine when safe to resume, if necessary to resume, if dose adjustment is necessary, and/or if an alternative agent is required
instead.
Discharge Orders:
Discharge Patient (As Directed); Ordered 07/30/24
Ordered By: Amanda Taylor
Discharge Date and Time
Print Language: ARMENIAN
[2024-07-30] MEDS: THERAGRAN 1 TABLET PO (16:44)
[2024-07-30] MEDS: LOVENOX SC (16:44)
== END 2024-07-30 17:31 | disposition home or self-care (01) | DRG 392 ==
LOC: 4 WEST ACU 15:50
PROVIDERS: Hospitalist; Physician Assistant; ADMITTING PHYSICIAN Internal Medicine; ATTENDING PHYSICIAN Internal Medicine; CONSULT PHYSICIAN Internal Medicine Gastroenterology; EMERGENCY PHYSICIAN Student in an Organized Health Care Education/Training Program
DX: K58.1 Irritable bowel syndrome with constipation (principal); K21.9 Gastro-esophageal reflux disease without esophagitis; D52.9 Folate deficiency anemia, unspecified; M79.7 Fibromyalgia; G47.33 Obstructive sleep apnea (adult) (pediatric); E03.9 Hypothyroidism, unspecified; I10 Essential (primary) hypertension; R63.4 Abnormal weight loss; F32.A Depression, unspecified; R53.82 Chronic fatigue, unspecified; S09.8XXA Other specified injuries of head, initial encounter; W18.2XXA Fall in (into) shower or empty bathtub, initial encounter; R53.1 Weakness; C61 Malignant neoplasm of prostate; I95.9 Hypotension, unspecified; Z68.24 Body mass index [BMI] 24.0-24.9, adult; Z87.442 Personal history of urinary calculi; T43.695A Adverse effect of other psychostimulants, initial encounter
CPT/HCPCS: 70450; 74177; 80048; 80076; 81003; 82040; 82533; 82607; 82746; 83690; 83735; 84100; 84132; 84439; 84443; 84484; 85025; 85027; 93005; 96361; 96374; 97162; 99285; Q9967

== ENCOUNTER → 2024-08-07 10:19 | Outpatient (REF) | payer MEDICARE, BC, SELFPAY ==
[2024-08-07 12:03] LABS: PSA, Total - Diagnostic 2.32 ng/ml (0.0-4.0)
== END ==
LOC: REG 10:19
PROVIDERS: ATTENDING PHYSICIAN Radiology Radiation Oncology; FAMILY PHYSICIAN Family Medicine
DX: C61 Malignant neoplasm of prostate (principal)
CPT/HCPCS: 36415; 84153

== ENCOUNTER → 2024-08-09 19:26 | Outpatient (REF) | payer MEDICARE, BC, SELFPAY | LOC: MRI 3T 19:26 | PROVIDERS: ATTENDING PHYSICIAN Radiology Radiation Oncology; FAMILY PHYSICIAN Family Medicine | DX: C61 Malignant neoplasm of prostate (principal) | CPT/HCPCS: 72197; A9575 ==

== ENCOUNTER → 2024-08-22 08:24 | Outpatient (REF) | payer MEDICARE, BC, SELFPAY ==
[2024-08-22 10:27] LABS: % Basophils 0.6 % (0-2); % Eosinophils 9.1 % (0-6); % Immature Granulocytes 1.2 % (0-0.5); % Lymphocytes 25.7 % (20.5-51.1); % Monocytes 7.2 % (1.7-9.3); % Neutrophils 56.2 % (42.2-75.2); Absolute Eosinophils 0.6 10^3/uL (0-0.7); Absolute Immature Granulocytes 0.1 10^3/uL (0-0.05); Absolute Lymphocytes 1.7 10^3/uL (1.2-3.4); Absolute Monocytes 0.5 10^3/uL (0.1-0.6); Absolute Neutrophils 3.8 10^3/uL (1.4-6.5); Hematocrit 40.6 % (39.0-52.0); Hemoglobin 13.3 g/dL (13.0-18.0); Mean Corp Hgb Conc. 32.8 g/dL (33.0-37.0); Mean Corpuscular Hgb 33.5 pg (27.0-31.0); Mean Corpuscular Volume 102.3 fL (80.0-94.0); Mean Platelet Volume 10.1 fL (7.4-10.4); Nucleated Red Blood Cells % 0 % (-); Platelet Count 168 10^3/uL (130-400); Red Blood Cell Count 3.97 10^6/uL (4.70-6.10); Red Cell Dist. Width 14.1 % (11.5-14.5); White Blood Cell Count 6.7 10^3/uL (4.8-10.8)
[2024-08-22 10:57] LABS: ALT (SGPT) 66 U/L (0-50); AST (SGOT) 43 U/L (17-59); Albumin 4.6 g/dl (3.5-5.0); Alkaline Phosphatase 84 U/L (38-126); Blood Urea Nitrogen 17 mg/dl (9-20); Carbon Dioxide 29 mmol/L (22-30); Chloride 102 mmol/L (98-107); Glucose 109 mg/dl (70-99); Sodium 142 mmol/L (135-145); Total Bilirubin 0.7 mg/dl (0.2-1.3); Total Protein 7.4 g/dl (6.3-8.2); eGFR > 60.00
[2024-08-22 11:27] LABS: TSH Reflex To Free T4 1.12 uIU/ml (0.47-4.68)
[2024-08-22 12:02] LABS: Folate 15.2 ng/ml (2.76-20); Vitamin B12 798 pg/ml (239-931)
== END ==
LOC: RAD 08:24
PROVIDERS: ATTENDING PHYSICIAN Radiology Radiation Oncology; FAMILY PHYSICIAN Family Medicine
DX: C61 Malignant neoplasm of prostate (principal); I10 Essential (primary) hypertension; E03.9 Hypothyroidism, unspecified; D53.9 Nutritional anemia, unspecified
CPT/HCPCS: 36415; 78306; 80053; 82607; 82746; 84443; 85025; A9503

== ENCOUNTER 2024-10-06 13:11 | Emergency (ER) | payer MEDICARE, BC, SELFPAY ==
[2024-10-06 13:13] VITALS: BP 127/77
[2024-10-06 16:03] VITALS: BP 153/76; BMI 25.1
[2024-10-06 16:08] VITALS: BP 153/76
[2024-10-06] MEDS: MOTRIN 600 MG PO (16:56)
[2024-10-06 17:00] VITALS: BP 159/86
--- NOTE | 2024-10-06 18:52 | CON.MD ---
Consultation - Medical
-
Epistaxis
79 yo c hx HTN, prostate CA receiving XRT, presented c L sided epistaxis
BP generally well controlled with present meds
Had 4.5 cm pack c about 6 cc air placed on left, but still c oozing around packing
PE - Pt in NAD
BP - mildly elevated
Packing removed on left
Septal spur on left c some clotted blood, not actively bleeding
OC - dry
A/P Epistaxis
Switched to 5.5 cm ant pack, 8 cc air
No additional bleeding
D/c on antibx ( amox or keflex)
Pain meds if needed
Follow up in office for packing removal in 2-3 days
--- NOTE | 2024-10-06 18:58 | ED.GENMED ---
History of Present Illness
General
Chief Complaint: Nose Bleed
Source: patient
Exam Limitations: none
Time Seen by Provider: 10/06/24 14:51
History of Present Illness
History of Present Illness:
79-year-old male presents with left sided nosebleed starting today. He has history prostate cancer currently receives radiation for this. He was unable to get the bleeding stopped at home. He is passing large clots at home. Not anticoagulated.
No other complaints
Phy Exam
Physical Exam
Physical Exam:
General: Well-appearing male no acute respiratory distress
HEENT: Normocephalic atraumatic active left-sided epistaxis. No evidence of anterior bleed. Right side of nose is patent posterior pharynx does have some blood
Course
Orders/Labs/Results
Orders:
Orders
10/06/24 16:23
Acetaminophen [Tylenol] 650 mg PO NOW STA
10/06/24 16:50
Ibuprofen [Motrin] 600 mg PO NOW STA
Vital Signs
Initial and Last Documented VS:
Initial Vital Signs
Temp Pulse Resp BP Pulse Ox
98.5 F 76 16 127/77 96
10/06/24 13:13 10/06/24 13:13 10/06/24 13:13 10/06/24 13:13 10/06/24 13:13
Last Documented Vital Signs
Temp Pulse Resp BP Pulse Ox
97.5 F 54 20 159/86 96
10/06/24 16:08 10/06/24 16:08 10/06/24 16:08 10/06/24 17:00 10/06/24 18:45
MDM/Problems Addressed
Differential Diagnosis Includes:
Acute epistaxis. No obvious anterior source. Nothing to cauterize on exam. Inserted cotton with lidocaine and epinephrine and let that sit and remove the cotton in the nose are still bleeding. Attempted to place a 5.5 cm balloon and however
patient was not able to tolerate. Switched to 4.5 cm balloon and inflated with 6 cc of air however the bleeding continued around the balloon. Patient frustrated with his current situation. Requested to see ear nose and throat. Your nose and
throat Dr. Ling did come in and evaluate the patient and replace a 4 and half balloon with a 5-1/2 balloon with 8 cc of air. Will start on antibiotics he will follow-up for packing removal
*Pulse Oximetry
SaO2: 96
Oxygen Mode of Delivery: Room air
*Critical Care Note
Total Time (30-74mins, 75-104mins- exclusive of procedures): Not Applicable
ED Attending Note
-
Portions of this chart may have been created with voice recognition software.� Occasional wrong word or��sound alike� substitutions may have occurred due to the inherent limitations of voice recognition software.
Discharge Plan
Departure
Patient Disposition: Home (Routine Discharge)
Date of Disposition: 10/06/24
Time of Disposition: 19:01
Patient with high blood pressure during this ER visit?: No
Discharge Problem:
Acute posterior epistaxis
Prescriptions:
New
cephalexin 500 mg capsule
500 mg PO Q8H 7 Days Qty: 21 0RF
hydrocodone-acetaminophen 5-325 mg tablet
1 tab PO Q8H PRN (Reason: Pain) Qty: 10 0RF
No Action
amlodipine 5 mg Tablet
5 mg PO DAILY
levothyroxine 50 mcg Tablet
50 mcg PO DAILY
losartan 100 mg Tablet
100 mg PO DAILY
magnesium oxide 400 mg magnesium Tablet
400 mg PO DAILY Qty: 0
sertraline 50 mg Tablet
50 mg PO DAILY
bupropion HCl 150 mg Tablet Extended Release 24 Hr
150 mg PO DAILY
ondansetron HCl 4 mg Tablet
4 mg PO BIDPRN PRN (Reason: nausea)
diclofenac sodium 1 % Gel
2 g TOPICAL DAILYPRN PRN (Reason: plantar fasciitis)
alum-mag hydroxide-simeth [Mag-Al Plus] 200-200-20 mg/5 mL Suspension
30 ml PO Q6HPRN PRN (Reason: Heartburn) Qty: 3000 0RF
multivitamin with folic acid [Tab-A-Chance] 400 mcg Tablet
1 tab PO DAILY Qty: 30 0RF
pantoprazole [Protonix] 40 mg Tablet,Delayed Release (Dr/Ec)
40 mg PO BID Qty: 60 0RF
modafinil 200 mg Tablet
400 mg PO DAILY Qty: 0 0RF
polyethylene glycol 3350 17 gram Powder In Packet
17 g PO DAILY Qty: 30 0RF
Rx Instructions:
hold if diarrhea
Referrals:
Leonardo Ling MD [Active, Otology]
Lyssa Avina DO [Family Provider]
Activity Restrictions/Additional Instructions:
Follow-up with ENT in 2 days for packing removal. Take antibiotic as directed. Return if needed otherwise.
Interventions
Interventions:
*Risk Screen - Suicide Last Done: 10/06/24 16:08
*General Assessment Last Done: 10/06/24 16:08
*Neglect/Abuse Screening Last Done: 10/06/24 16:08
*ED- Fall Risk Assessment Last Done: 10/06/24 16:08
*ED COVID-19 Vaccine History Last Done: 10/06/24 16:08
ED-EENT Assessment Last Done: 10/06/24 16:08
Discharge Date and Time
Print Language: MARTINIQUAIS
[2024-10-06 19:10] VITALS: BP 178/90
[2024-10-06] MEDS: NORCO 5/325 1 TABLET PO (19:12)
== END 2024-10-06 19:17 | disposition home or self-care (01) ==
LOC: EMR 13:11
PROVIDERS: EMERGENCY PHYSICIAN Emergency Medicine; FAMILY PHYSICIAN Family Medicine; OTHER PHYSICIAN Otolaryngology
DX: R04.0 Epistaxis (principal); C61 Malignant neoplasm of prostate; Z79.899 Other long term (current) drug therapy
CPT/HCPCS: 99283; 30901

== ENCOUNTER → 2024-10-07 09:40 | Outpatient (REF) | payer MEDICARE, BC, SELFPAY ==
[2024-10-07 10:34] LABS: Urine Albumin Negative (Neg - Trace); Urine Bilirubin Negative (Negative); Urine Character Clear (Clear); Urine Color Yellow; Urine Glucose Negative (Negative); Urine Ketone Negative (Negative); Urine Leukocyte Negative (Negative); Urine Nitrite Negative (Negative); Urine Occult Blood Negative (Negative); Urine Specific Gravity 1.005 (<1.030); Urine Urobilinogen Negative (Neg - 1+)
[2024-10-07 10:54] LABS: Urine Squamous Cell 0-2 /LPF (Few)
[2024-10-07 10:55] LABS: Urine Amorphous Seen; Urine Red Blood Cell 0-2 /HPF (0-2); Urine Urothelial Cell 0-2 /LPF (FEW); Urine White Cell 0-2 /HPF (0-5)
[2024-10-07 11:27] LABS: PSA, Total - Diagnostic 0.07 ng/ml (0.0-4.0)
== END ==
LOC: REG 09:40
PROVIDERS: ATTENDING PHYSICIAN Specialist; FAMILY PHYSICIAN Family Medicine; REFERRING PHYSICIAN Family Medicine Geriatric Medicine
DX: R31.9 Hematuria, unspecified (principal); R35.0 Frequency of micturition; R39.15 Urgency of urination; C61 Malignant neoplasm of prostate
CPT/HCPCS: 36415; 81003; 81015; 84153; 87086

== ENCOUNTER → 2024-12-25 09:52 | Outpatient (REF) | payer MEDICARE, BC, SELFPAY ==
[2024-12-25 11:24] LABS: PSA, Total - Diagnostic < 0.06 ng/ml (0.0-4.0)
== END ==
LOC: REG 09:52
PROVIDERS: ATTENDING PHYSICIAN Radiology Radiation Oncology; FAMILY PHYSICIAN Family Medicine; REFERRING PHYSICIAN Specialist
DX: C61 Malignant neoplasm of prostate (principal)
CPT/HCPCS: 36415; 84153